=== PATIENT | female | born 1990 | race African-American/Black ===

== ENCOUNTER 2016-10-25 13:22 | Emergency (ER) | payer OTHER ==
[~2016-10-25] VITALS: Ht 160 cm; Wt 53.5 kg
[~2016-10-25 13:22] MED LIST: DOCU-27 PO; ONDA4TAB10 SL; OXYC-323 PO; OXYC1TAB7 PO; PROM25TA10 PO
[2016-10-25] MEDS ORDERED: ONDANSETRON PF 4 MG/2 ML VIAL. ONE (14:27)
[2016-10-25] MEDS: ONDANSETRON ODT 4 MG TAB.RAPDIS PO ONE ×2 (14:30→14:31)
[2016-10-25] MEDS ORDERED: IV NORMAL SALINE 1000ML BAG 1,000 ML IV ONE (15:15)
[2016-10-25 15:22] LABS: BASO # 0.1 x10^3/uL (0.0-0.2); BASO % 1 % (0-3); EOS % 0 % (0-3); HEMATOCRIT 42.5 % (36.0-47.0); HEMOGLOBIN 14.6 g/dL (12.0-15.5); LYMPH # 1.9 x10^3/uL (1.0-4.8); LYMPH % 19 % (24-48); MEAN CORPUSCULAR HEMOGLOBIN 31 pg (25-35); MEAN CORPUSCULAR HGB CONC 34 g/dL (31-37); MEAN CORPUSCULAR VOLUME 89 fL (79-100); MONO % 6 % (0-9); NEUT % 74 % (31-73); PLATELET COUNT 327 x10^3/uL (140-400); RED BLOOD COUNT 4.78 x10^6/uL (3.50-5.40); WHITE BLOOD COUNT 9.7 x10^3/uL (4.0-11.0)
[2016-10-25 15:24] LABS: NEG OBC UR NEG; POS OBC UR POS
[2016-10-25 15:25] LABS: BILIRUBIN,URINE SMALL (NEG); GLUCOSE,URINE NEGATIVE (NEG); NITRITE,URINE NEGATIVE (NEG); PROTEIN,URINE 30 mg/dL (NEG-TRACE)
[2016-10-25 15:36] LABS: BACTERIA,URINE MODERATE /HPF (0-FEW); CALCIUM 9.8 mg/dL (8.5-10.1); GFR 79.9; POTASSIUM 3.4 mmol/L (3.5-5.1); RBC,URINE 0 /HPF (0-2); SQUAMOUS EPITHELIAL CELL,UR MANY /LPF; WBC,URINE OCC /HPF (0-4)
[2016-10-25] MEDS ORDERED: ONDANSETRON PF 4 MG/2 ML VIAL. IV ONE (15:45)
[2016-10-25] MEDS: ONDANSETRON PF 4 MG/2 ML VIAL. IV PRN ×2 (15:50→16:33)
[2016-10-25] MEDS: HYDROMORPHONE 2 MG/ML VIAL. IV PRN ×3 (15:50→17:46)
[2016-10-25] MEDS ORDERED: IOHEXOL 300 MG/ML 75 ML VIAL IV ONE (17:15)
--- NOTE | 2016-10-25 17:51 | RAD ---
PROCEDURE CT abdomen pelvis with intravenous contrast. HISTORY Right-sided abdominal pain. TECHNIQUE After administration of intravenous contrast only, 75 mL Omnipaque 300, CT of the abdomen and pelvis was performed. Exposure: One or more of the following individualized dose reduction techniques were utilized for this examination: 1. Automated exposure control. 2. Adjustment of the mA and/or kV according to patient size. 3. Use of iterative reconstruction technique. COMPARISON CT abdomen pelvis May 21, 2016. FINDINGS Evaluation of enteric structures may be limited by lack of oral contrast. Liver, spleen, pancreas, and bilateral adrenal glands are unremarkable. Gallbladder is absent. Bilateral kidneys enhance symmetrically. No bowel obstruction or inflammation is seen. Appendix is without evidence of inflammation. Urinary bladder is unremarkable. Uterus and adnexa have unremarkable CT appearance. No free air or free fluid is seen in the abdomen or pelvis. IMPRESSION No acute abnormality identified in the abdomen or pelvis. Electronically signed by: Pelon Baugh MD (Oct 25, 2016 17:49:57)
[2016-10-25 17:52] LABS: ALBUMIN 4.3 g/dL (3.4-5.0); DIRECT BILIRUBIN 0.1 mg/dL (0.0-0.2); TOTAL BILIRUBIN 0.9 mg/dL (0.2-1.0); TOTAL PROTEIN 8.7 g/dL (6.4-8.2)
[2016-10-25] MEDS ORDERED: ONDA4TAB10 SL (18:26)
[2016-10-25] MEDS ORDERED: HYDR-2666 PO (18:26)
--- NOTE | 2016-10-25 18:26 | PHYS DOC ---
Past Medical History Past Medical History: No Pertinent History Past Surgical History: Cholecystectomy Alcohol Use: Occasionally Drug Use: Marijuana Adult General Chief Complaint Chief Complaint: NAUSEA/VOMITING/DIARRHA HPI HPI 26-year-old female presenting to the emergency Department today with abdominal pain with nausea and vomiting since proximally 5 o'clock last night. The pain is moderate sharp nonradiating and without alleviating factors. It is associated with nausea and vomiting as above. She denies diarrhea or constipation. She has had this pain intermittently for the past four months. She does endorse cannabis use. She reports a fever however did not take her temperature. Review of Systems Review of Systems review of systems was negative for chest pain or shortness of breath. She denies recorded temperature above 100. She denies any new rashes. All other review of systems is negative. Current Medications Current Medications Current Medications Medications (Trade) Dose Ordered Sig/Parveen Start Time Stop Time Status Last Admin Dose Admin Hydromorphone HCl (Dilaudid) 0.5 mg PRN Q1HR PRN 10/25/16 15:45 10/25/16 17:46 DC 10/25/16 17:46 0.5 MG Iohexol (Omnipaque 300 Mg/ml) 75 ml 1X ONCE 10/25/16 17:15 10/25/16 17:17 DC 10/25/16 17:28 75 ML Ondansetron HCl (Zofran Odt) 4 mg 1X ONCE 10/25/16 14:30 10/25/16 14:33 DC Ondansetron HCl (Zofran) 4 mg PRN Q30MIN PRN 10/25/16 15:45 10/25/16 16:33 DC 10/25/16 16:33 4 MG Ondansetron HCl 4 mg 4 mg STK-MED ONCE 10/25/16 14:27 10/25/16 14:28 DC Sodium Chloride (Iv Sodium Chloride 0.9% 1000ml Bag) 1,000 ml @ 1,000 mls/hr 1X ONCE 10/25/16 15:15 10/25/16 16:14 DC 10/25/16 15:19 1,000 MLS/HR Allergies Allergies Allergies Coded Allergies Type Severity Reaction Last Updated Verified Latex, Natural Rubber Allergy Intermediate 02/08/16 Yes Physical Exam Physical Exam Constitutional: Well developed, well nourished, no acute distress, non-toxic appearance. HENT: Normocephalic, atraumatic, bilateral external ears normal, oropharynx moist, no oral exudates, nose normal. [] Eyes: PERRLA, EOMI, conjunctiva normal, no discharge. Neck: Normal range of motion, no tenderness, supple, no stridor. [] Cardiovascular:Heart rate regular rhythm, no murmur Lungs & Thorax: Bilateral breath sounds clear to auscultation [] Abdomen: mildly tender to palpation generally without a focus. No rebound tenderness present. Pain is not specific to McBurney's point. Skin: Warm, dry, no erythema, no rash. [] Back: No tenderness, no CVA tenderness. Extremities: No tenderness, no cyanosis, no clubbing, ROM intact, no edema. [] Neurologic: Alert and oriented X 3, normal motor function, normal sensory function, no focal deficits noted. Psychologic: Affect normal, judgement normal, mood normal. [] Current Patient Data Vital Signs Vital Signs Date Time Temp Pulse Resp B/P Pulse Ox O2 Delivery O2 Flow Rate FiO2 10/25/16 18:37 70 14 111/75 100 Room Air 10/25/16 14:05 98.3 98.3 Lab Values Laboratory Tests Test 10/25/16 15:00 White Blood Count 9.7x10^3/uL (4.0-11.0) Red Blood Count 4.78x10^6/uL (3.50-5.40) Hemoglobin 14.6g/dL (12.0-15.5) Hematocrit 42.5% (36.0-47.0) Mean Corpuscular Volume 89fL (79-100) Mean Corpuscular Hemoglobin 31pg (25-35) Mean Corpuscular Hemoglobin Concent 34g/dL (31-37) Red Cell Distribution Width 16.0% (11.5-14.5) H Platelet Count 327x10^3/uL (140-400) Neutrophils (%) (Auto) 74% (31-73) H Lymphocytes (%) (Auto) 19% (24-48) L Monocytes (%) (Auto) 6% (0-9) Eosinophils (%) (Auto) 0% (0-3) Basophils (%) (Auto) 1% (0-3) Neutrophils # (Auto) 7.1x10^3uL (1.8-7.7) Lymphocytes # (Auto) 1.9x10^3/uL (1.0-4.8) Monocytes # (Auto) 0.6x10^3/uL (0.0-1.1) Eosinophils # (Auto) 0.0x10^3/uL (0.0-0.7) Basophils # (Auto) 0.1x10^3/uL (0.0-0.2) Urine Collection Type Unknown Urine Color Dk yellow Urine Clarity Clear Urine pH 6.0 Urine Specific [place] >=1.030 Urine Protein 30mg/dL (NEG-TRACE) Urine Glucose (UA) Negativemg/dL (NEG) Urine Ketones (Stick) 15mg/dL (NEG) Urine Blood Negative (NEG) Urine Nitrite Negative (NEG) Urine Bilirubin Small (NEG) Urine Urobilinogen Dipstick 1.0mg/dL (0.2 mg/dL) Urine Leukocyte Esterase Trace (NEG) Urine RBC 0/HPF (0-2) Urine WBC Occ/HPF (0-4) Urine Squamous Epithelial Cells Many/LPF Urine Bacteria Moderate/HPF (0-FEW) Urine Mucus Marked/LPF Urine Test Negative (NEG) Sodium Level 140mmol/L (136-145) Potassium Level 3.4mmol/L (3.5-5.1) L Chloride Level 101mmol/L (98-107) Carbon Dioxide Level 25mmol/L (21-32) Anion Gap 14 (6-14) Blood Urea Nitrogen 16mg/dL (7-20) Creatinine 1.0mg/dL (0.6-1.0) Estimated GFR (Cockcroft-Gault) 79.9 Glucose Level 101mg/dL (70-99) H Calcium Level 9.8mg/dL (8.5-10.1) Total Bilirubin 0.9mg/dL (0.2-1.0) Direct Bilirubin 0.1mg/dL (0.0-0.2) Aspartate Amino Transferase (AST) 45U/L (15-37) H Alanine Aminotransferase (ALT) 63U/L (14-59) H Alkaline Phosphatase 71U/L (46-116) ZX-Kdy-C-Type Natriuretic Peptide 43pg/mL (0-124) Total Protein 8.7g/dL (6.4-8.2) H Albumin 4.3g/dL (3.4-5.0) Lipase 72U/L (73-393) L Laboratory Tests 10/25/16 15:00 Laboratory Tests 10/25/16 15:00 EKG EKG [] Radiology/Procedures Radiology/Procedures CT of the abdomen and pelvis performed[] Course & Med Decision Making Course & Med Decision Making Pertinent Labs and Imaging studies reviewed. (See chart for details) []26-year-old female presenting to the emergency Department with nausea vomiting and abdominal pain. On evaluation the patient was afebrile with a normal heart rate. Otherwise vitals unremarkable. Physical exam showed mild to moderate tenderness generally. Labs were obtained which showed a normal WBC count.urine analysis not suggestive of infection. Many squamous epithelial cells. Culture sent.otherwise chemistry panel showed mild hypokalemia. the patient was treated with IV fluids and pain medication along with nausea medication. CT of the abdomen and pelvis was negative for appendicitis. Her pain improved with the medication provided. I sat down and had a long face-to- face discussion with the patient and her mother and father. We discussed some of the causes of abdominal pain. I re-examine the patient's abdomen which showed no guarding of the appendix. I recommended referral to her primary care physician and three days for continued outpatient evaluation and care. Dragon Disclaimer Dragon Disclaimer This electronic medical record was generated, in whole or in part, using a voice recognition dictation system. Departure Departure Impression: Primary Impression: Abdominal pain Additional Impression: Nausea & vomiting Disposition: 01 HOME, SELF-CARE Condition: STABLE Referrals: KAVITA VÁSQUEZ MD (PCP) Patient Instructions: Abdominal Pain Additional Instructions: Thank you for allowing us to participate in your care today. Followup with your primary care physician in 3 days if your symptoms do not improve. If you do not have a primary care provider you can ask for a list of our primary care providers. Return to the emergency department you have any new or concerning findings. This should be evaluated by the primary care physician and any necessary consulting services for continued management within a few days after discharge. Return to emergency room if you have any new or concerning symptoms including but not limited to fever, chills, nausea, vomiting, intractable pain, any new rashes, chest pain, shortness of air, uncontrolled bleeding, difficulty breathing, and/or vision loss. You may have been prescribed medication that can change in your level of thinking and ability to operate machinery. These medications include hydrocodone and Ativan. Also, Benadryl has been known to do this as well. Be sure to check with your pharmacist and ask if the medications you've prescribed can affect your level of consciousness. I recommend not operating heavy machinery or driving while on medication such as these. Scripts Ondansetron (Zofran Odt)4 Mg Tab.rapdis1 Tab SL PRN Q8HRS PRN NAUSEA #6 TAB Prov:SUSAN SHERMAN MD 10/25/16 Hydrocodone Bit/Acetaminophen (Hydrocodone-Apap 5-325 )1 Each Tablet1 Tab PO PRN Q6HRS PRN PAIN #15 TAB Be careful as this medication may cause you to be drowsy or tired. Do not drive on this medication. Prov:SUSAN SHERMAN MD 10/25/16 Problem Qualifiers SUSAN SHERMAN MD Oct 25, 2016 18:26
[2016-10-25 18:37] VITALS: BP 111/75
== END 2016-10-25 19:02 | disposition home or self-care (01) ==
LOC: ER 13:22
DX: R10.30 Lower abdominal pain, unspecified (principal); R11.2 Nausea with vomiting, unspecified; F12.90 Cannabis use, unspecified, uncomplicated; Z91.040 Latex allergy status; Z90.49 Acquired absence of other specified parts of digestive tract
CPT/HCPCS: 36415; 74177; 80048; 80076; 81001; 81025; 83690; 83880; 85027; 87086; 96361; 96374; 96375; 96376; 99285; J1170; J2405; J7030; Q9967; Q0162

== ENCOUNTER 2016-11-26 10:45 | Emergency (ER) | payer OTHER ==
[~2016-11-26 10:45] MED LIST changes: +HYDR-2666 PO
--- NOTE | 2016-11-26 10:48 | PHYS DOC ---
Past Medical History Past Medical History: No Pertinent History Past Surgical History: Cholecystectomy Alcohol Use: Occasionally Drug Use: Marijuana Adult General Chief Complaint Chief Complaint: NAUSEA/VOMITING/DIARRHA HPI HPI Patient is a 26 year old female who presents with nausea vomiting or abdominal pain. According to her mom this is a cycle that she is in every 2 months when she develops this and has come to the ER. According to her mom she ate a hamburger on downtime stay in the 2 AM this morning she started having nausea vomiting and abdominal pain. Patient denies any fevers chills she denies any blood in her stool or vomit. She states she's vomited 3-4 times since last night. She points to her right lower quadrant where her pain is. She states this is her normal pain that she has when her abdomen accept. Review of Systems Review of Systems Constitutional: Denies fever or chills [] Eyes: Denies change in visual acuity, redness, or eye pain [] HENT: Denies nasal congestion or sore throat [] Respiratory: Denies cough or shortness of breath [] Cardiovascular: No additional information not addressed in HPI [] GI: Positive for abdominal pain, vomiting, denies any bloody stools or diarrhea : Denies dysuria or hematuria [] Musculoskeletal: Denies back pain or joint pain [] Integument: Denies rash or skin lesions [] Neurologic: Denies headache, focal weakness or sensory changes [] Endocrine: Denies polyuria or polydipsia [] Current Medications Current Medications Current Medications Medications (Trade) Dose Ordered Sig/Parveen Start Time Stop Time Status Last Admin Dose Admin Hydromorphone HCl (Dilaudid) 1 mg PRN Q15MIN PRN 11/26/16 11:30 11/27/16 11:29 11/26/16 14:15 1 MG Morphine Sulfate 2 mg PRN Q15MIN PRN 11/26/16 11:00 11/27/16 10:59 11/26/16 11:21 2 MG Ondansetron HCl (Zofran) 4 mg 1X ONCE 11/26/16 11:00 11/26/16 11:01 DC 11/26/16 11:20 4 MG Ondansetron HCl 4 mg 4 mg 1X ONCE 11/26/16 12:15 11/26/16 12:16 DC 2/17/17 12:11 4 MG Promethazine HCl 25 mg/Sodium Chloride 51 ml @ 101 mls/hr 1X ONCE 11/26/16 13:15 11/26/16 13:45 DC 11/26/16 13:35 101 MLS/HR Sodium Chloride (Iv Sodium Chloride 0.9% 1000ml Bag) 1,000 ml @ 1,000 mls/hr 1X ONCE 11/26/16 13:15 11/26/16 14:14 DC 11/26/16 13:25 1,000 MLS/HR Allergies Allergies Allergies Coded Allergies Type Severity Reaction Last Updated Verified Latex, Natural Rubber Allergy Intermediate 02/08/16 Yes Physical Exam Physical Exam Constitutional: Well developed, well nourished, no acute distress, non-toxic appearance. [] HENT: Normocephalic, atraumatic, bilateral external ears normal, oropharynx moist, no oral exudates, nose normal. [] Eyes: PERRLA, EOMI, conjunctiva normal, no discharge. [] Neck: Normal range of motion, no tenderness, supple, no stridor. [] Cardiovascular:Heart rate regular rhythm, no murmur [] Lungs & Thorax: Bilateral breath sounds clear to auscultation [] Abdomen: Bowel sounds normal, soft, tender to palpation diffusely, no masses, no pulsatile masses. [] Skin: Warm, dry, no erythema, no rash. [] Back: No tenderness, no CVA tenderness. [] Extremities: No tenderness, no cyanosis, no clubbing, ROM intact, no edema. [] Neurologic: Alert and oriented X 3, normal motor function, normal sensory function, no focal deficits noted. [] Psychologic: Affect normal, judgement normal, mood normal. [] Current Patient Data Vital Signs Vital Signs Date Time Temp Pulse Resp B/P Pulse Ox O2 Delivery O2 Flow Rate FiO2 11/26/16 14:15 12 11/26/16 11:06 98.3 64 141/79 98 Room Air 98.3 Lab Values Laboratory Tests Test 11/26/16 11:20 11/26/16 13:00 11/26/16 13:08 White Blood Count 8.5x10^3/uL (4.0-11.0) Red Blood Count 4.56x10^6/uL (3.50-5.40) Hemoglobin 14.3g/dL (12.0-15.5) Hematocrit 42.3% (36.0-47.0) Mean Corpuscular Volume 93fL (79-100) Mean Corpuscular Hemoglobin 32pg (25-35) Mean Corpuscular Hemoglobin Concent 34g/dL (31-37) Red Cell Distribution Width 14.3% (11.5-14.5) Platelet Count 296x10^3/uL (140-400) Neutrophils (%) (Auto) 80% (31-73) H Lymphocytes (%) (Auto) 14% (24-48) L Monocytes (%) (Auto) 5% (0-9) Eosinophils (%) (Auto) 0% (0-3) Basophils (%) (Auto) 1% (0-3) Neutrophils # (Auto) 6.8x10^3uL (1.8-7.7) Lymphocytes # (Auto) 1.2x10^3/uL (1.0-4.8) Monocytes # (Auto) 0.4x10^3/uL (0.0-1.1) Eosinophils # (Auto) 0.0x10^3/uL (0.0-0.7) Basophils # (Auto) 0.1x10^3/uL (0.0-0.2) Sodium Level 143mmol/L (136-145) Potassium Level 4.3mmol/L (3.5-5.1) Chloride Level 103mmol/L (98-107) Carbon Dioxide Level 25mmol/L (21-32) Anion Gap 15 (6-14) H Blood Urea Nitrogen 13mg/dL (7-20) Creatinine 0.8mg/dL (0.6-1.0) Estimated GFR (Cockcroft-Gault) 103.3 BUN/Creatinine Ratio 16 (6-20) Glucose Level 107mg/dL (70-99) H Calcium Level 9.9mg/dL (8.5-10.1) Total Bilirubin 0.5mg/dL (0.2-1.0) Aspartate Amino Transferase (AST) 73U/L (15-37) H Alanine Aminotransferase (ALT) 91U/L (14-59) H Alkaline Phosphatase 75U/L (46-116) Creatine Kinase 265U/L (26-192) H Total Protein 8.1g/dL (6.4-8.2) Albumin 4.5g/dL (3.4-5.0) Albumin/Globulin Ratio 1.3 (1.0-1.7) Lipase 66U/L (73-393) L Serum Test, Qualitative Negative (NEG) Urine Collection Type Unknown Urine Color Yellow Urine Clarity Clear Urine pH 6.0 Urine Specific [place] >=1.030 Urine Protein 30mg/dL (NEG-TRACE) Urine Glucose (UA) Negativemg/dL (NEG) Urine Ketones (Stick) 40mg/dL (NEG) Urine Blood Negative (NEG) Urine Nitrite Negative (NEG) Urine Bilirubin Negative (NEG) Urine Urobilinogen Dipstick 0.2mg/dL (0.2 mg/dL) Urine Leukocyte Esterase Negative (NEG) Urine RBC 3-5/HPF (0-2) Urine WBC 1-4/HPF (0-4) Urine Squamous Epithelial Cells Few/LPF Urine Bacteria 0/HPF (0-FEW) Urine Mucus Marked/LPF POC Urine HCG, Qualitative Hcg negative (Negative) Laboratory Tests 11/26/16 11:20 Laboratory Tests 11/26/16 11:20 EKG EKG [] Radiology/Procedures Radiology/Procedures [facility] [address] [place] [address] IMAGING REPORT Signed PATIENT: ROSALINE KIMBLE ACCOUNT: [id number] : 1990 LOCATION: ER AGE: 26 SEX: F EXAM STATUS: REG ER ORD. PHYSICIAN: HARMAN CORCORAN MD REASON: abd pain PROCEDURE: ACUTE ABDOMEN SERIES Abdomen series with chest, 3 views, 11/26/2016: History: Abdominal pain and dizziness There is a paucity of bowel gas in the GI tract. No dilated bowel loops are seen. No free air is evident in the abdomen. Surgical clips are present in the right upper quadrant. No abnormal abdominal calcifications are seen. The heart size is normal. The lungs are clear. There is no evidence of pleural fluid. IMPRESSION: No acute abdominal abnormality is detected. DICTATED and SIGNED BY: TRAM GAFFNEY MD DATE: 11/26/16 1208 CC: HARMAN CORCORAN MD; KAVITA VÁSQUEZ MD ~ Impressions: nause, vomiting Course & Med Decision Making Course & Med Decision Making Pertinent Labs and Imaging studies reviewed. (See chart for details) Abdominal series, labs do not show acute abdomen allergies. After 2-1 mg doses of Dilaudid and 2 doses of 4 mg Zofran and 25 mg. Patient's nausea is controlled her abdominal pain is resolved. She is requesting be discharged home. Return precautions given she is agreeable plan is in stable condition at this time. Dragon Disclaimer Dragon Disclaimer This electronic medical record was generated, in whole or in part, using a voice recognition dictation system. Departure Departure Impression: Primary Impression: Abdominal pain Disposition: HOME, SELF-CARE Condition: STABLE Referrals: KAVITA VÁSQUEZ MD (PCP) Patient Instructions: Nausea and Vomiting, [id number] Additional Instructions: Your blood work and x-ray did not show any acute abdomen allergies. You're feeling better now. You're being discharged home. Please follow-up with her primary care physician return to ER for worsening pain, uncontrolled nausea or other concerns. Scripts Ondansetron (Zofran Odt)4 Mg Tab.rapdis1 Tab SL Q8HRS #10 TAB Prov:HARMAN CORCORAN MD 11/26/16 HARMAN CORCORAN MD Nov 26, 2016 10:48
[2016-11-26] MEDS ORDERED: IV NORMAL SALINE 1000ML BAG 1,000 ML IV SCH (10:50)
[2016-11-26] MEDS ORDERED: MORPHINE SULFATE 2 MG/ML DISP.SYRIN. IV/SQ PRN (11:00)
[2016-11-26] MEDS ORDERED: ONDANSETRON PF 4 MG/2 ML VIAL. IV ONE ×2 (11:00→12:15)
[2016-11-26 11:32] LABS: BASO # 0.1 x10^3/uL (0.0-0.2); BASO % 1 % (0-3); EOS % 0 % (0-3); HEMATOCRIT 42.3 % (36.0-47.0); HEMOGLOBIN 14.3 g/dL (12.0-15.5); LYMPH # 1.2 x10^3/uL (1.0-4.8); LYMPH % 14 % (24-48); MEAN CORPUSCULAR HEMOGLOBIN 32 pg (25-35); MEAN CORPUSCULAR HGB CONC 34 g/dL (31-37); MEAN CORPUSCULAR VOLUME 93 fL (79-100); MONO % 5 % (0-9); NEUT % 80 % (31-73); PLATELET COUNT 296 x10^3/uL (140-400); RED BLOOD COUNT 4.56 x10^6/uL (3.50-5.40); RED CELL DISTRIBUTION WIDTH 14.3 % (11.5-14.5); WHITE BLOOD COUNT 8.5 x10^3/uL (4.0-11.0)
[2016-11-26 11:37] LABS: CALCIUM 9.9 mg/dL (8.5-10.1); CREATININE 0.8 mg/dL (0.6-1.0); GFR 103.3; POTASSIUM 4.3 mmol/L (3.5-5.1)
[2016-11-26 11:39] LABS: NEG OBC SER NEG; POS OBC SER POS
[2016-11-26] MEDS ORDERED: BC IMPLANT (11:39)
[2016-11-26 11:43] LABS: ALBUMIN 4.5 g/dL (3.4-5.0); TOTAL BILIRUBIN 0.5 mg/dL (0.2-1.0)
--- NOTE | 2016-11-26 12:11 | RAD ---
Abdomen series with chest, 3 views, 11/26/2016: History: Abdominal pain and dizziness There is a paucity of bowel gas in the GI tract. No dilated bowel loops are seen. No free air is evident in the abdomen. Surgical clips are present in the right upper quadrant. No abnormal abdominal calcifications are seen. The heart size is normal. The lungs are clear. There is no evidence of pleural fluid. IMPRESSION: No acute abdominal abnormality is detected.
[2016-11-26 12:16] LABS: ALBUMIN/GLOBULIN RATIO 1.3 (1.0-1.7); TOTAL PROTEIN 8.1 g/dL (6.4-8.2)
[2016-11-26 13:13] LABS: BILIRUBIN,URINE NEGATIVE (NEG); GLUCOSE,URINE NEGATIVE (NEG); NITRITE,URINE NEGATIVE (NEG); PROTEIN,URINE 30 mg/dL (NEG-TRACE); UROBILINOGEN,URINE 0.2 mg/dL (0.2 mg/dL)
[2016-11-26] MEDS ORDERED: IV NORMAL SALINE 1000ML BAG 1,000 ML IV ONE (13:15)
[2016-11-26] MEDS ORDERED: PROMETHAZINE 25 MG in IV NORMAL SALINE 50ML 50 ML IV ONE (13:15)
[2016-11-26 13:23] LABS: BACTERIA,URINE 0 /HPF (0-FEW); SQUAMOUS EPITHELIAL CELL,UR FEW /LPF
[2016-11-26] MEDS: HYDROMORPHONE 2 MG/ML VIAL. IV/SQ PRN ×2 (13:25→14:15)
[2016-11-26] MEDS ORDERED: ONDA4TAB10 SL (14:24)
[2016-11-26 14:30] VITALS: BP 109/57
[2016-11-27] MEDS ORDERED: HYDR-971 PO (17:16)
[2016-11-27] MEDS ORDERED: PROM12.56 PO (17:16)
== END 2016-11-26 15:25 | disposition home or self-care (01) ==
LOC: ER 10:45
DX: R10.9 Unspecified abdominal pain (principal); Z91.040 Latex allergy status; F12.10 Cannabis abuse, uncomplicated; Z90.49 Acquired absence of other specified parts of digestive tract
CPT/HCPCS: 36415; 74022; 80053; 81001; 81025; 82550; 83690; 84703; 85027; 96361; 96365; 96375; 96376; 99285; J1170; J2270; J2405; J2550; J7030

== ENCOUNTER 2016-11-27 12:26 | Emergency (ER) | payer OTHER ==
[~2016-11-27] VITALS: Ht 160 cm; Wt 52.2 kg
[~2016-11-27 12:26] MED LIST changes: +BC IMPLANT
--- NOTE | 2016-11-27 13:12 | PHYS DOC ---
Past Medical History Past Medical History: No Pertinent History Past Surgical History: Cholecystectomy Alcohol Use: Occasionally Drug Use: Marijuana Adult General Chief Complaint Chief Complaint: NAUSEA/VOMITING/DIARRHA HPI HPI Patient is a 26 year old female who presents with abdominal pain. Patient reports since yesterday she has been having generalized abdominal pain that is accompanied by nausea and vomiting. No clear inciting or mitigating factors. She has not been able to keep down any oral intake despite taking some zofran at home. Patient was seen yesterday for same and discharged home after evaluation did not reveal any concerning findings. Review of Systems Review of Systems Constitutional: Denies fever or chills Eyes: Denies change in visual acuity or eye pain HENT: Denies nasal congestion or sore throat Respiratory: Denies cough or shortness of breath Cardiovascular: Denies chest pain GI: General abdominal pain, nausea, vomiting. Denies bloody stools or diarrhea : Denies dysuria or hematuria Musculoskeletal: Denies back pain or joint pain Integument: Denies rash or skin lesions Neurologic: Denies headache, focal weakness or sensory changes Current Medications Current Medications Current Medications Medications (Trade) Dose Ordered Sig/Parveen Start Time Stop Time Status Last Admin Dose Admin Famotidine (Pepcid) 20 mg 1X ONCE 11/27/16 13:30 11/27/16 13:31 DC 11/27/16 13:34 20 MG Fentanyl Citrate (Fentanyl 2ml Vial) 25 mcg 1X ONCE 11/27/16 14:15 11/27/16 14:16 DC 11/27/16 14:24 25 MCG Ondansetron HCl (Zofran) 4 mg 1X ONCE 11/27/16 13:30 11/27/16 13:31 DC 11/27/16 13:33 4 MG Prochlorperazine Edisylate (Compazine) 10 mg 1X ONCE 11/27/16 14:15 11/27/16 14:16 DC 11/27/16 14:21 10 MG Sodium Chloride (Iv Sodium Chloride 0.9% 1000ml Bag) 1,000 ml @ 1,000 mls/hr Q1H 11/27/16 13:30 11/27/16 14:29 DC 11/27/16 13:38 1,000 MLS/HR Allergies Allergies Allergies Coded Allergies Type Severity Reaction Last Updated Verified Latex, Natural Rubber Allergy Intermediate 5/1/16 Yes Physical Exam Physical Exam Constitutional: Well developed, well nourished, no acute distress, non-toxic appearance HENT: Normocephalic, atraumatic, bilateral external ears normal Eyes: EOMI, conjunctiva normal, no discharge Neck: Normal range of motion, no stridor Cardiovascular: Heart rate normal, regular rhythm, no murmur Lungs & Thorax: Bilateral breath sounds clear to auscultation Abdomen: Bowel sounds normal, soft, non-distended, generally TTP most prominently in the epigastrium Skin: Warm, dry, no erythema, no rash Extremities: No obvious deformity, no edema Neurologic: Alert and oriented X 3, no gross deficits noted Current Patient Data Vital Signs Vital Signs Date Time Temp Pulse Resp B/P Pulse Ox O2 Delivery O2 Flow Rate FiO2 11/27/16 14:24 19 97 Room Air 11/27/16 13:00 98.6 58 148/86 98.6 Lab Values Laboratory Tests Test 11/27/16 13:02 11/27/16 13:15 11/27/16 13:25 POC Urine HCG, Qualitative Hcg negative (Negative) Urine Collection Type Unknown Urine Color [place] Urine Clarity Clear Urine pH 6.0 Urine Specific [place] >=1.030 Urine Protein 30mg/dL (NEG-TRACE) Urine Glucose (UA) Negativemg/dL (NEG) Urine Ketones (Stick) >=80mg/dL (NEG) Urine Blood Negative (NEG) Urine Nitrite Negative (NEG) Urine Bilirubin Small (NEG) Urine Urobilinogen Dipstick 1.0mg/dL (0.2 mg/dL) Urine Leukocyte Esterase Negative (NEG) Urine RBC 0/HPF (0-2) Urine WBC Occ/HPF (0-4) Urine Squamous Epithelial Cells Mod/LPF Urine Bacteria Few/HPF (0-FEW) Urine Mucus Mod/LPF White Blood Count 9.3x10^3/uL (4.0-11.0) Red Blood Count 4.26x10^6/uL (3.50-5.40) Hemoglobin 13.3g/dL (12.0-15.5) Hematocrit 39.6% (36.0-47.0) Mean Corpuscular Volume 93fL (79-100) Mean Corpuscular Hemoglobin 31pg (25-35) Mean Corpuscular Hemoglobin Concent 34g/dL (31-37) Red Cell Distribution Width 14.1% (11.5-14.5) Platelet Count 262x10^3/uL (140-400) Neutrophils (%) (Auto) 72% (31-73) Lymphocytes (%) (Auto) 23% (24-48) L Monocytes (%) (Auto) 5% (0-9) Eosinophils (%) (Auto) 0% (0-3) Basophils (%) (Auto) 1% (0-3) Neutrophils # (Auto) 6.7x10^3uL (1.8-7.7) Lymphocytes # (Auto) 2.1x10^3/uL (1.0-4.8) Monocytes # (Auto) 0.5x10^3/uL (0.0-1.1) Eosinophils # (Auto) 0.0x10^3/uL (0.0-0.7) Basophils # (Auto) 0.1x10^3/uL (0.0-0.2) Sodium Level 138mmol/L (136-145) Potassium Level 3.3mmol/L (3.5-5.1) L Chloride Level 100mmol/L (98-107) Carbon Dioxide Level 25mmol/L (21-32) Anion Gap 13 (6-14) Blood Urea Nitrogen 8mg/dL (7-20) Creatinine 0.8mg/dL (0.6-1.0) Estimated GFR (Cockcroft-Gault) 103.3 BUN/Creatinine Ratio 10 (6-20) Glucose Level 81mg/dL (70-99) Calcium Level 9.0mg/dL (8.5-10.1) Total Bilirubin 0.8mg/dL (0.2-1.0) Aspartate Amino Transferase (AST) 43U/L (15-37) H Alanine Aminotransferase (ALT) 62U/L (14-59) H Alkaline Phosphatase 64U/L (46-116) Total Protein 7.1g/dL (6.4-8.2) Albumin 3.9g/dL (3.4-5.0) Albumin/Globulin Ratio 1.2 (1.0-1.7) Lipase 77U/L (73-393) Laboratory Tests 11/27/16 13:25 Laboratory Tests 11/27/16 13:25 EKG EKG [] Radiology/Procedures Radiology/Procedures CT A/P: Pending Course & Med Decision Making Course & Med Decision Making Pertinent Labs and Imaging studies reviewed. (See chart for details) Patient is 26-year-old female who presents with abdominal pain and nausea/ vomiting. Symptoms since yesterday, however patient has history of similar symptoms in the past. Viral gastroenteritis is possibility, would also consider other pathology such as gastroparesis. Will check labs, UA, urine preg. IVF bolus, pain meds, pepcid, nausea meds ordered for relief of symptoms. I was initially hoping to avoid imaging as patient had AAS yesterday and had a CT scan just a month ago, however even after meds patient complaining of continued severe symptoms so will obtain scan to rule out more serious pathology. At this time will check patient out to Dr. Mancia with CT scan pending. Dragon Disclaimer Dragon Disclaimer This electronic medical record was generated, in whole or in part, using a voice recognition dictation system. Departure Departure Referrals: KAVITA VÁSQUEZ MD (PCP) SHIRA MILES MD Nov 27, 2016 13:12
[2016-11-27 13:25] LABS: BILIRUBIN,URINE SMALL (NEG); GLUCOSE,URINE NEGATIVE (NEG); NITRITE,URINE NEGATIVE (NEG); PROTEIN,URINE 30 mg/dL (NEG-TRACE)
[2016-11-27] MEDS ORDERED: FAMOTIDINE 20 MG/2 ML VIAL IVP ONE (13:30)
[2016-11-27] MEDS ORDERED: IV NORMAL SALINE 1000ML BAG 1,000 ML IV SCH (13:30)
[2016-11-27] MEDS ORDERED: ONDANSETRON PF 4 MG/2 ML VIAL. IV ONE (13:30)
[2016-11-27] MEDS ORDERED: FENTANYL PF 100 MCG/2 ML VIAL. IV ONE ×2 (13:30→14:15)
[2016-11-27 13:43] LABS: BASO # 0.1 x10^3/uL (0.0-0.2); BASO % 1 % (0-3); EOS % 0 % (0-3); HEMATOCRIT 39.6 % (36.0-47.0); HEMOGLOBIN 13.3 g/dL (12.0-15.5); LYMPH # 2.1 x10^3/uL (1.0-4.8); LYMPH % 23 % (24-48); MEAN CORPUSCULAR HEMOGLOBIN 31 pg (25-35); MEAN CORPUSCULAR HGB CONC 34 g/dL (31-37); MEAN CORPUSCULAR VOLUME 93 fL (79-100); MONO % 5 % (0-9); NEUT % 72 % (31-73); PLATELET COUNT 262 x10^3/uL (140-400); RED BLOOD COUNT 4.26 x10^6/uL (3.50-5.40); RED CELL DISTRIBUTION WIDTH 14.1 % (11.5-14.5); WHITE BLOOD COUNT 9.3 x10^3/uL (4.0-11.0)
[2016-11-27 13:49] LABS: BACTERIA,URINE FEW /HPF (0-FEW); RBC,URINE 0 /HPF (0-2); SQUAMOUS EPITHELIAL CELL,UR MOD /LPF; WBC,URINE OCC /HPF (0-4)
[2016-11-27 13:56] LABS: CREATININE 0.8 mg/dL (0.6-1.0); GFR 103.3; POTASSIUM 3.3 mmol/L (3.5-5.1)
[2016-11-27 14:02] LABS: ALBUMIN 3.9 g/dL (3.4-5.0); ALBUMIN/GLOBULIN RATIO 1.2 (1.0-1.7); TOTAL BILIRUBIN 0.8 mg/dL (0.2-1.0); TOTAL PROTEIN 7.1 g/dL (6.4-8.2)
[2016-11-27] MEDS ORDERED: PROCHLORPERAZINE 10 MG/2 ML VIAL. IV ONE (14:15)
[2016-11-27] MEDS ORDERED: IOHEXOL 300 MG/ML 75 ML VIAL IV ONE (14:30)
[2016-11-27] MEDS ORDERED: CONTRAST GIVEN MC PRN (14:45)
--- NOTE | 2016-11-27 15:26 | RAD ---
PQRS STATEMENT One or more of the following individualized dose reduction techniques were utilized for this study: 1.Automated exposure control. 2.Adjustment of the mA and/orkVaccording to patient size. 3.Use of iterative reconstruction technique. Indication:NAUSEA AND VOMITING FOR 2 DAYS, EPIGASTRIC PAIN, NOT ABLE TO KEEP ANY FOOD OR DRINK DOWN
PT STATES IN LAST MONTH FOR SAME PROBLEM
OMNI 300 75ML
PRIORS SENT Reason: abd pain, N/V, h/o SBO, r/o acute process / Spl. Instructions: / History: Comparison: October 25, 2016 Technique: multiple contiguous axial images were obtained through the abdomen and pelvis after intravenous administration of iodinated contrast. Coronal and sagittal reformations were created. Findings: The lung bases are clear. The heart size is normal. The liver is normal in size with no focal lesions identified. Gallbladder is surgically absent. The pancreas is unremarkable. The spleen and adrenal glands are within normal limits. The kidneys demonstrate no hydronephrosis or mass. The abdominal aorta is normal in caliber. There is no ascites or adenopathy. The appendix is normal. The bowel loops are normal in caliber. The urinary bladder is within normal limits. No destructive osseous lesion is identified. Impression: No ascites or inflammatory mass. Electronically signed by: Manuel Avila (Nov 27, 2016 15:24:39)
[2016-11-27] MEDS ORDERED: DIPHENHYDRAMINE 50 MG/ML VIAL IVP ONE (15:45)
[2016-11-27] MEDS ORDERED: MORPHINE SULFATE 4 MG/ML DISP.SYRIN. IV ONE (15:45)
[2016-11-27] MEDS ORDERED: PROMETHAZINE 12.5 MG in IV NORMAL SALINE 50ML 50 ML IV PRN (15:45)
[2016-11-27] MEDS ORDERED: HYDROMORPHONE 2 MG/ML VIAL. IV ONE (16:45)
--- NOTE | 2016-11-27 16:58 | PHYS DOC ---
Past Medical History Past Medical History: No Pertinent History Past Surgical History: Cholecystectomy Alcohol Use: Occasionally Drug Use: Marijuana Adult General Chief Complaint Chief Complaint: NAUSEA/VOMITING/DIARRHA Current Medications Current Medications Current Medications Medications (Trade) Dose Ordered Sig/Parveen Start Time Stop Time Status Last Admin Dose Admin Diphenhydramine HCl 25 mg 25 mg 1X ONCE 11/27/16 15:45 11/27/16 15:46 DC 11/27/16 16:05 25 MG Famotidine (Pepcid) 20 mg 1X ONCE 11/27/16 13:30 11/27/16 13:31 DC 11/27/16 13:34 20 MG Fentanyl Citrate (Fentanyl 2ml Vial) 25 mcg 1X ONCE 11/27/16 14:15 11/27/16 14:16 DC 11/27/16 14:24 25 MCG Hydromorphone HCl (Dilaudid) 1 mg 1X ONCE 11/27/16 16:45 11/27/16 16:46 DC 11/27/16 16:40 1 MG Info (Do NOT chart on this entry -- for MONITORING) 1 each PRN DAILY PRN 11/27/16 14:45 11/27/16 17:45 DC Iohexol (Omnipaque 300 Mg/ml) 75 ml 1X ONCE 11/27/16 14:30 11/27/16 14:31 DC 11/27/16 15:00 75 ML Morphine Sulfate 4 mg 1X ONCE 11/27/16 15:45 11/27/16 15:46 DC Ondansetron HCl (Zofran) 4 mg 1X ONCE 11/27/16 13:30 11/27/16 13:31 DC 11/27/16 13:33 4 MG Prochlorperazine Edisylate (Compazine) 10 mg 1X ONCE 11/27/16 14:15 11/27/16 14:16 DC 11/27/16 14:21 10 MG Promethazine HCl/ Sodium Chloride (Phenergan/Iv Sodium Chloride 0.9% 50ml) 50.5 ml @ 151.5 mls/ hr PRN Q6HRS PRN 11/27/16 15:45 11/27/16 17:45 DC Sodium Chloride (Iv Sodium Chloride 0.9% 1000ml Bag) 1,000 ml @ 1,000 mls/hr Q1H 11/27/16 13:30 11/27/16 14:29 DC 11/27/16 13:38 1,000 MLS/HR Allergies Allergies Allergies Coded Allergies Type Severity Reaction Last Updated Verified Latex, Natural Rubber Allergy Intermediate 02/08/16 Yes Physical Exam Physical Exam Constitutional: Well developed, well nourished, no acute distress, non-toxic appearance. [] HENT: Normocephalic, atraumatic, bilateral external ears normal, oropharynx moist, no oral exudates, nose normal. [] Eyes: PERRLA, EOMI, conjunctiva normal, no discharge. [] Neck: Normal range of motion, no tenderness, supple, no stridor. [] Cardiovascular:Heart rate regular rhythm, no murmur [] Lungs & Thorax: Bilateral breath sounds clear to auscultation [] Abdomen: Bowel sounds normal, soft, no tenderness, no masses, no pulsatile masses. [] Skin: Warm, dry, no erythema, no rash. [] Back: No tenderness, no CVA tenderness. [] Extremities: No tenderness, no cyanosis, no clubbing, ROM intact, no edema. [] Neurologic: Alert and oriented X 3, normal motor function, normal sensory function, no focal deficits noted. [] Psychologic: Affect normal, judgement normal, mood normal. [] Current Patient Data Vital Signs Vital Signs Date Time Temp Pulse Resp B/P Pulse Ox O2 Delivery O2 Flow Rate FiO2 11/27/16 17:30 62 14 122/70 100 Room Air 11/27/16 13:00 98.6 98.6 Lab Values Laboratory Tests Test 11/27/16 13:02 11/27/16 13:15 11/27/16 13:25 POC Urine HCG, Qualitative Hcg negative (Negative) Urine Collection Type Unknown Urine Color [place] Urine Clarity Clear Urine pH 6.0 Urine Specific [place] >=1.030 Urine Protein 30mg/dL (NEG-TRACE) Urine Glucose (UA) Negativemg/dL (NEG) Urine Ketones (Stick) >=80mg/dL (NEG) Urine Blood Negative (NEG) Urine Nitrite Negative (NEG) Urine Bilirubin Small (NEG) Urine Urobilinogen Dipstick 1.0mg/dL (0.2 mg/dL) Urine Leukocyte Esterase Negative (NEG) Urine RBC 0/HPF (0-2) Urine WBC Occ/HPF (0-4) Urine Squamous Epithelial Cells Mod/LPF Urine Bacteria Few/HPF (0-FEW) Urine Mucus Mod/LPF White Blood Count 9.3x10^3/uL (4.0-11.0) Red Blood Count 4.26x10^6/uL (3.50-5.40) Hemoglobin 13.3g/dL (12.0-15.5) Hematocrit 39.6% (36.0-47.0) Mean Corpuscular Volume 93fL (79-100) Mean Corpuscular Hemoglobin 31pg (25-35) Mean Corpuscular Hemoglobin Concent 34g/dL (31-37) Red Cell Distribution Width 14.1% (11.5-14.5) Platelet Count 262x10^3/uL (140-400) Neutrophils (%) (Auto) 72% (31-73) Lymphocytes (%) (Auto) 23% (24-48) L Monocytes (%) (Auto) 5% (0-9) Eosinophils (%) (Auto) 0% (0-3) Basophils (%) (Auto) 1% (0-3) Neutrophils # (Auto) 6.7x10^3uL (1.8-7.7) Lymphocytes # (Auto) 2.1x10^3/uL (1.0-4.8) Monocytes # (Auto) 0.5x10^3/uL (0.0-1.1) Eosinophils # (Auto) 0.0x10^3/uL (0.0-0.7) Basophils # (Auto) 0.1x10^3/uL (0.0-0.2) Sodium Level 138mmol/L (136-145) Potassium Level 3.3mmol/L (3.5-5.1) L Chloride Level 100mmol/L (98-107) Carbon Dioxide Level 25mmol/L (21-32) Anion Gap 13 (6-14) Blood Urea Nitrogen 8mg/dL (7-20) Creatinine 0.8mg/dL (0.6-1.0) Estimated GFR (Cockcroft-Gault) 103.3 BUN/Creatinine Ratio 10 (6-20) Glucose Level 81mg/dL (70-99) Calcium Level 9.0mg/dL (8.5-10.1) Total Bilirubin 0.8mg/dL (0.2-1.0) Aspartate Amino Transferase (AST) 43U/L (15-37) H Alanine Aminotransferase (ALT) 62U/L (14-59) H Alkaline Phosphatase 64U/L (46-116) Total Protein 7.1g/dL (6.4-8.2) Albumin 3.9g/dL (3.4-5.0) Albumin/Globulin Ratio 1.2 (1.0-1.7) Lipase 77U/L (73-393) Laboratory Tests 11/27/16 13:25 Laboratory Tests 11/27/16 13:25 EKG EKG [] Radiology/Procedures Radiology/Procedures CT of the abdomen/pelvis with IV contrast demonstrated the following: The lung bases are clear. The heart size is normal. The liver is normal in size with no focal lesions identified. Gallbladder is surgically absent. The pancreas is unremarkable. The spleen and adrenal glands are within normal limits. The kidneys demonstrate no hydronephrosis or mass. The abdominal aorta is normal in caliber. There is no ascites or adenopathy. The appendix is normal. The bowel loops are normal in caliber. The urinary bladder is within normal limits. No destructive osseous lesion is identified. Course & Med Decision Making Course & Med Decision Making Pertinent Labs and Imaging studies reviewed. (See chart for details) I assumed care of this patient from Dr. White. CT of her abdomen and pelvis is negative. Upon my reassessment, the patient continues to be nauseated and is retching in the room. I ordered additional doses of Phenergan and Dilaudid for her pain. Patient will be fluid challenged. She will be discharged with Phenergan and Hunt for pain and will obtain close follow up in the next [address] Sellers for dietary recommendations and was given strict instruction to remain well hydrated with phenergan suppositories as needed for any nausea. Her laboratory workup and CT imaging were reviewed and patient left the department feeling much improved. Pt successfully tolerated oral fluids upon discharge. Dragon Disclaimer Dragon Disclaimer This electronic medical record was generated, in whole or in part, using a voice recognition dictation system. Departure Departure Impression: Primary Impression: Abdominal pain Additional Impression: Intractable vomiting with nausea Disposition: HOME, SELF-CARE Admitting Physician: Other Condition: STABLE Referrals: KAVITA VÁSQUEZ MD (PCP) Patient Instructions: Nausea and Vomiting, [id number] Additional Instructions: Please take your nausea medications as prescribed. Continue to drink plenty of fluids. Return to the ER if you develop any worsening of your symptoms. Scripts Hydrocodone/Apap 5-325 (Hunt 5-325 Tablet)1 Each Tablet1 Tab PO PRN Q6HRS PRN PAIN #8 TAB Ref 0 Prov:REJI KHAN DO 11/27/16 Promethazine Hcl 12.5 Mg Tablet1 Tab PO Q6-8HRS #10 TAB Ref 1 Prov:REJI KHAN DO 11/27/16 Problem Qualifiers REJI KHAN DO Nov 27, 2016 16:58
[2016-11-27] MEDS ORDERED: PROM12.56 PO (17:16)
[2016-11-27] MEDS ORDERED: HYDR-971 PO (17:16)
[2016-11-27 17:30] VITALS: BP 122/70
== END 2016-11-27 17:40 | disposition home or self-care (01) ==
LOC: ER 12:26
DX: R11.2 Nausea with vomiting, unspecified (principal); R10.84 Generalized abdominal pain; F12.10 Cannabis abuse, uncomplicated; Z90.49 Acquired absence of other specified parts of digestive tract; Z91.040 Latex allergy status; Z91.048 Other nonmedicinal substance allergy status
CPT/HCPCS: 36415; 74177; 80053; 81001; 81025; 83690; 85027; 96361; 96374; 96375; 96376; 99285; J0780; J1170; J1200; J2405; J3010; J7030; Q9967; S0028

== ENCOUNTER 2017-05-12 23:48 | Emergency (ER) | payer OTHER ==
[~2017-05-12] VITALS: Ht 160 cm; Wt 52.2 kg
[~2017-05-12 23:48] MED LIST changes: +DOCU-109 PO; -DOCU-27 PO; -HYDR-2666 PO; +HYDR-2758 PO; +HYDR-971 PO; +PROM12.56 PO
--- NOTE | 2017-05-13 00:33 | PHYS DOC ---
Past Medical History Past Medical History: No Pertinent History Past Surgical History: Cholecystectomy Alcohol Use: Occasionally Drug Use: Marijuana Adult General Chief Complaint Chief Complaint: ABDOMINAL PAIN HPI HPI Patient is a 27 year old F who presents with abdominal pain nausea and vomiting. Patient states that around 4:00 PM she developed generalized abdominal tenderness with nausea and vomiting. Patient unable to keep any of her medications down. Patient denies any fevers. Patient is a previous cholestatic to tx. Patient denies possibility of . Patient declines any chest pain or shortness of breath. Patient no other complaints. Review of Systems Review of Systems GEN: Denies fevers, chills, sweats HEENT: Denies blurred vision, sore throat CV: Denies chest pain RESP: Denies shortness of air, cough GI: abd pain with n/v/ NEURO: Denies confusion, dizziness MSK: Denies weakness, joint pain/swelling Current Medications Current Medications Current Medications Medications (Trade) Dose Ordered Sig/Parveen Start Time Stop Time Status Last Admin Dose Admin Diphenhydramine HCl (Benadryl) 50 mg 1X ONCE 05/13/17 02:00 05/13/17 02:01 DC 05/13/17 01:53 50 MG Fentanyl Citrate (Fentanyl 2ml Vial) 50 mcg 1X ONCE 05/13/17 01:15 05/13/17 01:16 DC 05/13/17 01:09 50 MCG Info (Do NOT chart on this entry -- for MONITORING) 1 each PRN DAILY PRN 05/13/17 01:15 05/15/17 01:14 Iohexol (Omnipaque 300 Mg/ml) 75 ml 1X ONCE 05/13/17 01:30 05/13/17 01:31 DC 05/13/17 01:26 75 ML Ketorolac Tromethamine (Toradol) 30 mg 1X ONCE 05/13/17 02:00 05/13/17 02:01 DC 05/13/17 01:53 30 MG Metoclopramide HCl (Reglan) 10 mg 1X ONCE 05/13/17 02:00 05/13/17 02:01 DC 05/13/17 01:53 10 MG Ondansetron HCl (Zofran) 4 mg 1X ONCE 05/13/17 01:00 05/13/17 01:01 DC 05/13/17 00:48 4 MG Sodium Chloride 1,000 ml @ 1,000 mls/hr 1X ONCE 05/13/17 01:00 05/13/17 01:59 DC 05/13/17 00:48 1,000 MLS/HR Allergies Allergies Allergies Coded Allergies Type Severity Reaction Last Updated Verified Latex, Natural Rubber Allergy Intermediate 05/13/17 Yes morphine Allergy Intermediate 05/13/17 Yes Physical Exam Physical Exam GEN.: No apparent distress. Alert and oriented. HEENT: Head is normocephalic, atraumatic NECK: Supple. LUNGS: CTAB. HEART: RRR, S1, S2 present. Peripheral pulses intact ABDOMEN: Soft, mild gen TPP. Positive bowel sounds. EXTREMITIES: Without any cyanosis. NEUROLOGIC: Normal speech, normal tone PSYCHIATRIC: Normal affect, normal mood. SKIN: No ulcerations Current Patient Data Vital Signs Vital Signs Date Time Temp Pulse Resp B/P (MAP) Pulse Ox O2 Delivery O2 Flow Rate FiO2 05/13/17 00:05 98.6 97 18 121/62 (81) 98 Room Air 98.6 Lab Values Laboratory Tests Test 05/13/17 00:07 05/13/17 00:10 05/13/17 00:45 POC Urine HCG, Qualitative Hcg negative (Negative) White Blood Count 9.7 x10^3/uL (4.0-11.0) Red Blood Count 4.26 x10^6/uL (3.50-5.40) Hemoglobin 13.4 g/dL (12.0-15.5) Hematocrit 39.2 % (36.0-47.0) Mean Corpuscular Volume 92 fL (79-100) Mean Corpuscular Hemoglobin 31 pg (25-35) Mean Corpuscular Hemoglobin Concent 34 g/dL (31-37) Red Cell Distribution Width 14.9 % (11.5-14.5) H Platelet Count 277 x10^3/uL (140-400) Neutrophils (%) (Auto) 65 % (31-73) Lymphocytes (%) (Auto) 27 % (24-48) Monocytes (%) (Auto) 7 % (0-9) Eosinophils (%) (Auto) 0 % (0-3) Basophils (%) (Auto) 1 % (0-3) Neutrophils # (Auto) 6.3 x10^3uL (1.8-7.7) Lymphocytes # (Auto) 2.6 x10^3/uL (1.0-4.8) Monocytes # (Auto) 0.7 x10^3/uL (0.0-1.1) Eosinophils # (Auto) 0.0 x10^3/uL (0.0-0.7) Basophils # (Auto) 0.1 x10^3/uL (0.0-0.2) Sodium Level 139 mmol/L (136-145) Potassium Level 3.8 mmol/L (3.5-5.1) Chloride Level 102 mmol/L (98-107) Carbon Dioxide Level 25 mmol/L (21-32) Anion Gap 12 (6-14) Blood Urea Nitrogen 10 mg/dL (7-20) Creatinine 0.7 mg/dL (0.6-1.0) Estimated GFR (Cockcroft-Gault) 119.7 BUN/Creatinine Ratio 14 (6-20) Glucose Level 97 mg/dL (70-99) Calcium Level 9.1 mg/dL (8.5-10.1) Total Bilirubin 0.4 mg/dL (0.2-1.0) Aspartate Amino Transferase (AST) 27 U/L (15-37) Alanine Aminotransferase (ALT) 36 U/L (14-59) Alkaline Phosphatase 66 U/L (46-116) Total Protein 7.5 g/dL (6.4-8.2) Albumin 3.8 g/dL (3.4-5.0) Albumin/Globulin Ratio 1.0 (1.0-1.7) Lipase 75 U/L (73-393) Urine Collection Type Unknown Urine Color Yellow Urine Clarity Cloudy Urine pH 6.0 Urine Specific [place] >=1.030 Urine Protein 30 mg/dL (NEG-TRACE) Urine Glucose (UA) Negative mg/dL (NEG) Urine Ketones (Stick) 40 mg/dL (NEG) Urine Blood Negative (NEG) Urine Nitrite Positive (NEG) Urine Bilirubin Negative (NEG) Urine Urobilinogen Dipstick 0.2 mg/dL (0.2 mg/dL) Urine Leukocyte Esterase Trace (NEG) Urine RBC Occ /HPF (0-2) Urine WBC 5-10 /HPF (0-4) Urine Squamous Epithelial Cells Mod /LPF Urine Bacteria Many /HPF (0-FEW) Urine Mucus Mod /LPF Laboratory Tests 05/13/17 00:10 Laboratory Tests 05/13/17 00:10 EKG EKG [] Radiology/Procedures Radiology/Procedures CT abd and pelvis: IMPRESSION: Proximal enteritis of the jejunum at the left upper quadrant with wall thickening.[] Course & Med Decision Making Course & Med Decision Making Pertinent Labs and Imaging studies reviewed. (See chart for details) ED course: Patient was seen and examined emergency room CBC, CMP, UA, urine , CT scan abdomen and pelvis were ordered, fentanyl and Zofran were ordered along with a 1 L normal saline bolus 0145: Patient still having nausea and slight abdominal pain ordered Benadryl, Toradol, Reglan 0155: Updated patient on lab results and CT results. Recommended patient follow- up with PCP for an upper GI scope as an outpatient study to further evaluate her abdominal pain. Question the patient about signs and symptoms of UTI she states she has no dysuria and no burning with urination and no increased frequency. I believe the urine is most likely contaminant and will not prescribe antibiotics for the patient at this time. MDM: After reviewing the chart, CC/HPI/PMH, physical exam, [lab results], [ radiological results], I do not believe the patient has a intra-abdominal emergency warranting further workup and/or admission at this time. I believe the patient's UA is contaminated and she has no signs or symptoms of a UTI therefore will hold antibiotics at this time and sent for cultures. Explained to the patient she is to follow-up with her PCP to have an upper GI scope done to further evaluate the inflammation of the jejunum. Patient is stable for discharge. Additional verbal discharge instructions were provided to the patient and that if symptoms get worse or any new symptoms arise that are worrisome to the patient she is to return to the emergency room immediately [] Dragon Disclaimer Dragon Disclaimer This electronic medical record was generated, in whole or in part, using a voice recognition dictation system. Departure Departure Impression: Primary Impression: Nausea and vomiting Additional Impression: Abdominal pain Disposition: 01 HOME, SELF-CARE Condition: IMPROVED Referrals: KAVITA VÁSQUEZ MD (PCP) Patient Instructions: Abdominal Pain (Nonspecific), Nausea and Vomiting Additional Instructions: Please follow up with her family doctor next one to 2 days for further evaluation and management of your abdominal pain and the need for possibly an upper GI scope Scripts Ondansetron (ZOFRAN ODT) 4 Mg Tab.rapdis 1 TAB SL Q8HRS, #15 TAB Prov: PAUL NELSON DO 05/13/17 Problem Qualifiers Primary Impression: Nausea and vomiting Vomiting type: unspecified Vomiting Intractability: intractable Qualified Codes: R11.2 - Nausea with vomiting, unspecified Additional Impression: Abdominal pain Abdominal location: generalized Qualified Codes: R10.84 - Generalized abdominal pain PAUL NELSON DO May 13, 2017 00:33
[2017-05-13 00:38] LABS: BASO # 0.1 x10^3/uL (0.0-0.2); BASO % 1 % (0-3); EOS % 0 % (0-3); HEMATOCRIT 39.2 % (36.0-47.0); HEMOGLOBIN 13.4 g/dL (12.0-15.5); LYMPH # 2.6 x10^3/uL (1.0-4.8); LYMPH % 27 % (24-48); MEAN CORPUSCULAR HEMOGLOBIN 31 pg (25-35); MEAN CORPUSCULAR HGB CONC 34 g/dL (31-37); MEAN CORPUSCULAR VOLUME 92 fL (79-100); MONO % 7 % (0-9); NEUT % 65 % (31-73); PLATELET COUNT 277 x10^3/uL (140-400); RED BLOOD COUNT 4.26 x10^6/uL (3.50-5.40); RED CELL DISTRIBUTION WIDTH 14.9 % (11.5-14.5); WHITE BLOOD COUNT 9.7 x10^3/uL (4.0-11.0)
[2017-05-13 00:54] LABS: CALCIUM 9.1 mg/dL (8.5-10.1); CREATININE 0.7 mg/dL (0.6-1.0); GFR 119.7; POTASSIUM 3.8 mmol/L (3.5-5.1)
[2017-05-13 00:59] LABS: BILIRUBIN,URINE NEGATIVE (NEG); GLUCOSE,URINE NEGATIVE (NEG); NITRITE,URINE POSITIVE (NEG); PROTEIN,URINE 30 mg/dL (NEG-TRACE); UROBILINOGEN,URINE 0.2 mg/dL (0.2 mg/dL)
[2017-05-13] MEDS ORDERED: IV NORMAL SALINE 1000ML BAG 1,000 ML IV ONE (01:00)
[2017-05-13] MEDS ORDERED: ONDANSETRON PF 4 MG/2 ML VIAL. IV ONE (01:00)
[2017-05-13 01:02] LABS: ALBUMIN 3.8 g/dL (3.4-5.0); TOTAL BILIRUBIN 0.4 mg/dL (0.2-1.0); TOTAL PROTEIN 7.5 g/dL (6.4-8.2)
[2017-05-13 01:08] LABS: BACTERIA,URINE MANY /HPF (0-FEW); RBC,URINE OCC /HPF (0-2); SQUAMOUS EPITHELIAL CELL,UR MOD /LPF
[2017-05-13] MEDS ORDERED: fentaNYL PF VIAL 100 MCG/2 ML VIAL IV ONE (01:15)
[2017-05-13] MEDS ORDERED: CONTRAST GIVEN MC PRN (01:15)
[2017-05-13] MEDS ORDERED: IOHEXOL 300 MG/ML 75 ML VIAL IV ONE (01:30)
[2017-05-13 01:32] VITALS: BP 136/70
--- NOTE | 2017-05-13 01:45 | RAD ---
CT abdomen and pelvis with contrast COMPARISON: CT abdomen and pelvis liver 2016. TECHNIQUE: Helical CT imaging of the abdomen and pelvis was acquired with 75 mL Omnipaque 300 intravenous contrast. HISTORY: Abdominal pain and vomiting. Abdomen findings: Cholecystectomy. Kidneys, adrenals, spleen, pancreas and liver are unremarkable. There is abnormal wall thickening of the proximal jejunum at the left upper quadrant abdomen consistent with enteritis. No bowel obstruction. The appendix cannot be identified may be obscured by surrounding bowel loops. No abdominal fluid or adenopathy. Lung bases and bones are unremarkable. Pelvis findings: Ovaries poorly visualized due to surrounding fluid-filled small bowel loops. Uterus, bladder, rectum and bones are unremarkable. No significant volume of pelvic fluid evident. No adenopathy. IMPRESSION: Proximal enteritis of the jejunum at the left upper quadrant with wall thickening. Exposure: One or more of the following individualized dose reduction techniques were utilized for this examination: 1. Automated exposure control 2. Adjustment of the mA and/or kV according to patient size 3. Use of iterative reconstruction technique Electronically signed by: Clifford Alvarez MD (05/13/2017 1:42 AM) [id number]
[2017-05-13] MEDS ORDERED: diphenhydrAMINE 50 MG/ML VIAL IVP ONE (02:00)
[2017-05-13] MEDS ORDERED: KETOROLAC TROMETHAMINE 30 MG/ML INJ. IV ONE (02:00)
[2017-05-13] MEDS ORDERED: METOCLOPRAMIDE HCL 10 MG/2 ML VIAL. IV ONE (02:00)
[2017-05-13] MEDS ORDERED: ONDA4TAB10 SL (02:00)
== END 2017-05-13 02:28 | disposition home or self-care (01) ==
LOC: ER 23:48
DX: R11.2 Nausea with vomiting, unspecified (principal); R10.84 Generalized abdominal pain; F12.10 Cannabis abuse, uncomplicated; Z90.49 Acquired absence of other specified parts of digestive tract; Z91.040 Latex allergy status; Z88.5 Allergy status to narcotic agent
CPT/HCPCS: 36415; 74177; 80053; 81001; 81025; 83690; 85027; 87086; 96361; 96374; 96375; 99285; J1200; J1885; J2405; J2765; J3010; J7030; Q9967

== ENCOUNTER 2017-12-01 14:11 | Emergency (ER) | payer BC, OTHER ==
[2017-12-01 14:28] LABS: URINE HCG POC HCG NEGATIVE (Negative)
[2017-12-01 14:53] LABS: BILIRUBIN,URINE NEGATIVE (NEG); CLARITY,URINE CLEAR; COLOR,URINE YELLOW; GLUCOSE,URINE NEGATIVE (NEG); NITRITE,URINE NEGATIVE (NEG); PROTEIN,URINE NEGATIVE (NEG-TRACE); UROBILINOGEN,URINE 0.2 mg/dL (0.2 mg/dL)
[2017-12-01 14:57] LABS: BACTERIA,URINE FEW /HPF (0-FEW); RBC,URINE 0 /HPF (0-2); WBC,URINE OCC /HPF (0-4)
[2017-12-01 14:58] LABS: SQUAMOUS EPITHELIAL CELL,UR FEW /LPF
[2017-12-01] MEDS: ONDANSETRON PF 4 MG/2 ML VIAL. IV ×2 (15:00)
[2017-12-01] MEDS: fentaNYL PF VIAL 100 MCG/2 ML VIAL IV ×4 (15:00→16:27)
[2017-12-01] MEDS: IV NORMAL SALINE 1000ML BAG 1,000 ML IV ×2 (15:00)
[2017-12-01 15:06] LABS: ADD MAN DIFF? NO
[2017-12-01 15:15] LABS: BASO % 1 % (0-3); EOS % 1 % (0-3); HEMATOCRIT 40.7 % (36.0-47.0); LYMPH # 2.2 x10^3/uL (1.0-4.8); LYMPH % 37 % (24-48); MEAN CORPUSCULAR HEMOGLOBIN 31 pg (25-35); MEAN CORPUSCULAR HGB CONC 34 g/dL (31-37); MEAN CORPUSCULAR VOLUME 92 fL (79-100); MONO # 0.5 x10^3/uL (0.0-1.1); MONO % 9 % (0-9); NEUT % 53 % (31-73); PLATELET COUNT 288 x10^3/uL (140-400); RED BLOOD COUNT 4.45 x10^6/uL (3.50-5.40); RED CELL DISTRIBUTION WIDTH 15.8 % (11.5-14.5); WHITE BLOOD COUNT 5.8 x10^3/uL (4.0-11.0)
[2017-12-01 15:22] LABS: ANION GAP 12 (6-14); BLOOD UREA NITROGEN 10 mg/dL (7-20); BUN/CREATININE RATIO 13 (6-20); CALCIUM 9.3 mg/dL (8.5-10.1); CARBON DIOXIDE 24 mmol/L (21-32); CHLORIDE 102 mmol/L (98-107); CREATININE 0.8 mg/dL (0.6-1.0); GFR 102.6; GLUCOSE 87 mg/dL (70-99); POTASSIUM 3.4 mmol/L (3.5-5.1); SODIUM 138 mmol/L (136-145)
[2017-12-01 15:28] LABS: ALK PHOS 70 U/L (46-116); ALT (SGPT) 20 U/L (14-59); AST (SGOT) 24 U/L (15-37); LIPASE 69 U/L (73-393); TOTAL BILIRUBIN 0.5 mg/dL (0.2-1.0); TOTAL PROTEIN 7.9 g/dL (6.4-8.2)
[2017-12-01] MEDS ORDERED: CONTRAST GIVEN MC ×2 (15:45)
[2017-12-01] MEDS: IOHEXOL 300 MG/ML 100ML VIAL. IV ×2 (15:57)
[2017-12-01] MEDS: KETOROLAC 30 MG/ML INJ. IV ×2 (16:23)
== END 2017-12-01 16:49 | disposition home or self-care (01) ==
LOC: ER 14:11
DX: R10.31 Right lower quadrant pain (principal); F12.10 Cannabis abuse, uncomplicated; F31.9 Bipolar disorder, unspecified; F41.9 Anxiety disorder, unspecified; F17.210 Nicotine dependence, cigarettes, uncomplicated; Z90.49 Acquired absence of other specified parts of digestive tract; Z88.5 Allergy status to narcotic agent; Z91.040 Latex allergy status
CPT/HCPCS: 36415; 74177; 80053; 81001; 81025; 83690; 85025; 96361; 96374; 96375; 96376; 99285-25; J1885; J2405; J3010; J7030; Q9967

== ENCOUNTER 2018-07-07 10:51 | Emergency (ER) | payer SELFPAY ==
[~2018-07-07] VITALS: Ht 170.2 cm; Wt 49.9 kg
[~2018-07-07 10:51] MED LIST changes: +TRAM50TA PO
[2018-07-07] MEDS ORDERED: fentaNYL PF VIAL 100 MCG/2 ML VIAL IV ONE ×2 (11:15→12:45)
[2018-07-07] MEDS ORDERED: IV NORMAL SALINE 1000ML BAG 1,000 ML IV ONE (11:15)
[2018-07-07] MEDS ORDERED: PANTOPRAZOLE IV PUSH 40 MG VIAL. IVP ONE (11:15)
[2018-07-07] MEDS ORDERED: ONDANSETRON PF 4 MG/2 ML VIAL. IV ONE ×2 (11:15→12:45)
[2018-07-07] MEDS ORDERED: IOHEXOL 300 MG/ML 100ML VIAL. IV ONE (11:15)
[2018-07-07 11:26] LABS: BASO % 1 % (0-3); EOS % 0 % (0-3); HEMATOCRIT 41.4 % (36.0-47.0); HEMOGLOBIN 14.4 g/dL (12.0-15.5); LYMPH % 16 % (24-48); MEAN CORPUSCULAR HEMOGLOBIN 32 pg (25-35); MEAN CORPUSCULAR HGB CONC 35 g/dL (31-37); MEAN CORPUSCULAR VOLUME 93 fL (79-100); MONO # 0.3 x10^3/uL (0.0-1.1); MONO % 5 % (0-9); NEUT % 79 % (31-73); PLATELET COUNT 254 x10^3/uL (140-400); RED BLOOD COUNT 4.46 x10^6/uL (3.50-5.40); RED CELL DISTRIBUTION WIDTH 14.1 % (11.5-14.5); WHITE BLOOD COUNT 6.3 x10^3/uL (4.0-11.0)
[2018-07-07] MEDS ORDERED: CONTRAST GIVEN. MC PRN (11:30)
[2018-07-07 11:37] LABS: CALCIUM 9.5 mg/dL (8.5-10.1); CREATININE 0.8 mg/dL (0.6-1.0); GFR 101.9; POTASSIUM 3.8 mmol/L (3.5-5.1)
[2018-07-07 11:42] LABS: ALBUMIN/GLOBULIN RATIO 1.1 (1.0-1.7); TOTAL BILIRUBIN 0.6 mg/dL (0.2-1.0); TOTAL PROTEIN 7.6 g/dL (6.4-8.2)
[2018-07-07 12:32] VITALS: BP 108/58
--- NOTE | 2018-07-07 13:46 | PHYS DOC ---
Past Medical History Past Medical History: Anxiety, Bipolar, Depression Past Surgical History: Cholecystectomy Alcohol Use: Occasionally Drug Use: Marijuana Adult General Chief Complaint Chief Complaint: FLANK PAIN HPI HPI Patient is a 28 year old female with history of anxiety, bipolar, depression, who presents today complaining of moderate right lower quadrant abdominal pain radiating to the right flank that has been going on for 1 day. Patient is also complaining of nausea with vomiting. She states she has chills. She states her pain is worse on certain movements. Denies any diarrhea. Denies any chance she is . Review of Systems Review of Systems Constitutional: Denies fever or chills [] Eyes: Denies change in visual acuity, redness, or eye pain [] HENT: Denies nasal congestion or sore throat [] Respiratory: Denies cough or shortness of breath [] Cardiovascular: No additional information not addressed in HPI [] GI: Reports right lower quadrant abdominal pain with nausea and vomiting, denies ,bloody stools or diarrhea [] : Reports right flank pain. Denies dysuria or hematuria [] Musculoskeletal: Denies back pain or joint pain [] Integument: Denies rash or skin lesions [] Neurologic: Denies headache, focal weakness or sensory changes [] Endocrine: Denies polyuria or polydipsia [] All other systems were reviewed and found to be within normal limits, except as documented in this note. Current Medications Current Medications Current Medications Medications (Trade) Dose Ordered Sig/Parveen Start Time Stop Time Status Last Admin Dose Admin Acetaminophen/ Hydrocodone Bitart (Lortab 5/325) 1 tab 1X ONCE 07/07/18 15:00 07/07/18 15:01 DC Dicyclomine HCl (Bentyl) 20 mg 1X ONCE 07/07/18 15:00 07/07/18 15:01 DC Fentanyl Citrate (Fentanyl 2ml Vial) 50 mcg 1X ONCE 07/07/18 12:45 07/07/18 12:46 DC 07/07/18 13:10 50 MCG Info (CONTRAST GIVEN -- Rx MONITORING) 1 each PRN DAILY PRN 07/07/18 11:30 07/09/18 11:29 Iohexol (Omnipaque 300 Mg/ml) 75 ml 1X ONCE 07/07/18 11:15 07/07/18 11:20 DC 07/07/18 11:15 75 ML Ondansetron HCl (Zofran Odt) 4 mg 1X ONCE 07/07/18 15:00 07/07/18 15:01 DC Ondansetron HCl (Zofran) 4 mg 1X ONCE 07/07/18 12:45 07/07/18 12:46 DC 07/07/18 13:09 4 MG Pantoprazole Sodium (PROTONIX VIAL for IV PUSH) 40 mg 1X ONCE 07/07/18 11:15 07/07/18 11:17 DC 07/07/18 11:29 40 MG Sodium Chloride 1,000 ml @ 1,000 mls/hr 1X ONCE 07/07/18 11:15 07/07/18 12:14 DC 07/07/18 11:27 1,000 MLS/HR Allergies Allergies Allergies Coded Allergies Type Severity Reaction Last Updated Verified Latex, Natural Rubber Allergy Intermediate 05/13/17 Yes morphine Allergy Intermediate 05/13/17 Yes Physical Exam Physical Exam Constitutional: Well developed, well nourished, no acute distress, non-toxic appearance. [] HENT: Normocephalic, atraumatic, bilateral external ears normal, oropharynx moist, no oral exudates, nose normal. [] Eyes: PERRLA, EOMI, conjunctiva normal, no discharge. [] Neck: Normal range of motion, no tenderness, supple, no stridor. [] Cardiovascular:Heart rate regular rhythm, no murmur [] Lungs & Thorax: Bilateral breath sounds clear to auscultation [] Abdomen: Bowel sounds normal, soft, no tenderness, no masses, no pulsatile masses. Patient is actively vomiting. Skin: Warm, dry, no erythema, no rash. [] Back: No tenderness, no CVA tenderness. [] Extremities: No tenderness, no cyanosis, no clubbing, ROM intact, no edema. [] Neurologic: Alert and oriented X 3, normal motor function, normal sensory function, no focal deficits noted. [] Psychologic: Affect normal, judgement normal, mood normal. [] Current Patient Data Vital Signs Vital Signs Date Time Temp Pulse Resp B/P (MAP) Pulse Ox O2 Delivery O2 Flow Rate FiO2 07/07/18 13:10 16 Room Air 07/07/18 12:32 56 108/58 (75) 100 07/07/18 10:55 98.4 98.4 Lab Values Laboratory Tests Test 07/07/18 11:14 07/07/18 14:10 White Blood Count 6.3 x10^3/uL (4.0-11.0) Red Blood Count 4.46 x10^6/uL (3.50-5.40) Hemoglobin 14.4 g/dL (12.0-15.5) Hematocrit 41.4 % (36.0-47.0) Mean Corpuscular Volume 93 fL (79-100) Mean Corpuscular Hemoglobin 32 pg (25-35) Mean Corpuscular Hemoglobin Concent 35 g/dL (31-37) Red Cell Distribution Width 14.1 % (11.5-14.5) Platelet Count 254 x10^3/uL (140-400) Neutrophils (%) (Auto) 79 % (31-73) H Lymphocytes (%) (Auto) 16 % (24-48) L Monocytes (%) (Auto) 5 % (0-9) Eosinophils (%) (Auto) 0 % (0-3) Basophils (%) (Auto) 1 % (0-3) Neutrophils # (Auto) 5.0 x10^3uL (1.8-7.7) Lymphocytes # (Auto) 1.0 x10^3/uL (1.0-4.8) Monocytes # (Auto) 0.3 x10^3/uL (0.0-1.1) Eosinophils # (Auto) 0.0 x10^3/uL (0.0-0.7) Basophils # (Auto) 0.0 x10^3/uL (0.0-0.2) Maternal Serum HCG Beta Subunit 1 mIU/mL (0-5) Sodium Level 143 mmol/L (136-145) Potassium Level 3.8 mmol/L (3.5-5.1) Chloride Level 104 mmol/L (98-107) Carbon Dioxide Level 26 mmol/L (21-32) Anion Gap 13 (6-14) Blood Urea Nitrogen 10 mg/dL (7-20) Creatinine 0.8 mg/dL (0.6-1.0) Estimated GFR (Cockcroft-Gault) 101.9 BUN/Creatinine Ratio 13 (6-20) Glucose Level 104 mg/dL (70-99) H Calcium Level 9.5 mg/dL (8.5-10.1) Total Bilirubin 0.6 mg/dL (0.2-1.0) Aspartate Amino Transferase (AST) 25 U/L (15-37) Alanine Aminotransferase (ALT) 33 U/L (14-59) Alkaline Phosphatase 53 U/L (46-116) Total Protein 7.6 g/dL (6.4-8.2) Albumin 4.0 g/dL (3.4-5.0) Albumin/Globulin Ratio 1.1 (1.0-1.7) Lipase 57 U/L (73-393) L Urine Collection Type Unknown Urine Color Yellow Urine Clarity Clear Urine pH 7.5 Urine Specific [place] >=1.030 Urine Protein 30 mg/dL (NEG-TRACE) Urine Glucose (UA) Negative mg/dL (NEG) Urine Ketones (Stick) 15 mg/dL (NEG) Urine Blood Negative (NEG) Urine Nitrite Negative (NEG) Urine Bilirubin Negative (NEG) Urine Urobilinogen Dipstick 0.2 mg/dL (0.2 mg/dL) Urine Leukocyte Esterase Negative (NEG) Urine RBC 0 /HPF (0-2) Urine WBC 0 /HPF (0-4) Urine Squamous Epithelial Cells Few /LPF Urine Bacteria 0 /HPF (0-FEW) Laboratory Tests 07/07/18 11:14 Laboratory Tests 07/07/18 11:14 EKG EKG [] Radiology/Procedures Radiology/Procedures []PROCEDURE: CT ABD PELV W/ IV CONTRST ONLY CT Abdomen and Pelvis With Intravenous Contrast: History: Right lower quadrant pain. Vomiting. Comparison: CT abdomen pelvis December 01, 2017. Technique: After administration of intravenous contrast, 75 mL Omnipaque-300, CT of the abdomen and pelvis was performed. Exposure: One or more of the following individualized dose reduction techniques were utilized for this examination: 1. Automated exposure control 2. Adjustment of the mA and/or kV according to patient size 3. Use of iterative reconstruction technique Findings: Evaluation of enteric structures may be limited by lack of oral contrast. Liver, spleen, pancreas, and bilateral adrenal glands are unremarkable. Gallbladder is absent. Bilateral kidneys enhance symmetrically. No bowel obstruction or inflammation is appreciated. Appendix is thought visualized and is without evidence of inflammation. Urinary bladder is unremarkable. Uterus and adnexa have grossly unremarkable appearance. No free air or significant free fluid is seen in the abdomen or pelvis. Impression: 1. No acute abnormality identified in the abdomen or pelvis. Electronically signed by: Pelon Mccoy MD (07/07/2018 1:46 PM) [facility] DICTATED and SIGNED BY: PELON MCCOY MD DATE: 07/07/18 8464 Course & Med Decision Making Course & Med Decision Making Pertinent Labs and Imaging studies reviewed. (See chart for details) This is a 28-year-old female patient presenting to the ED today with right lower quadrant abdominal pain radiating to the right flank with nausea and vomiting. Symptoms for 1 day. Patient arrived in the ED actively vomiting. Labs are negative for any acute findings including UA. CT of the abdomen and pelvic was done to rule out appendicitis considering RLQ pain, CT is negative. Patient was given IV fluids and nausea medicine. Also given pain medicine. Patient is feeling better. Discharged with instructions to follow-up with PCP in one week. Also provided GI for follow-up. Provided return precautions. Discharged in stable condition. Dragon Disclaimer Dragon Disclaimer This electronic medical record was generated, in whole or in part, using a voice recognition dictation system. Departure Departure Impression: Primary Impression: Nausea and vomiting Additional Impression: Right lower quadrant abdominal pain Disposition: HOME, SELF-CARE Condition: STABLE Referrals: KAVITA VÁSQUEZ MD (PCP) REJI PRABHAKAR MD follow up in one week Patient Instructions: Abdominal Pain, Nausea and Vomiting, [id number] Additional Instructions: You were evaluated in the medicines for abdominal pain with nausea and vomiting. Your workup was negative for any acute findings. Follow-up with your own primary care doctor the provided specialist. Come back to the ED at any point symptoms worsen. Scripts Dicyclomine Hcl (DICYCLOMINE HCL) 20 Mg Tablet 1 TAB PO TID, #30 TAB 1 Refill Prov: FRITZ BRAN APRN 07/07/18 Ondansetron (ZOFRAN ODT) 4 Mg Tab.rapdis 1 TAB SL Q8HRS, #15 TAB Prov: FRITZ BRAN APRN 07/07/18 Problem Qualifiers Primary Impression: Nausea and vomiting Vomiting type: unspecified Vomiting Intractability: unspecified Qualified Codes: R11.2 - Nausea with vomiting, unspecified SHANTFRITZ JUAN Jul 07, 2018 13:46
--- NOTE | 2018-07-07 13:50 | RAD ---
CT Abdomen and Pelvis With Intravenous Contrast: History: Right lower quadrant pain. Vomiting. Comparison: CT abdomen pelvis December 01, 2017. Technique: After administration of intravenous contrast, 75 mL Omnipaque-300, CT of the abdomen and pelvis was performed. Exposure: One or more of the following individualized dose reduction techniques were utilized for this examination: 1. Automated exposure control 2. Adjustment of the mA and/or kV according to patient size 3. Use of iterative reconstruction technique Findings: Evaluation of enteric structures may be limited by lack of oral contrast. Liver, spleen, pancreas, and bilateral adrenal glands are unremarkable. Gallbladder is absent. Bilateral kidneys enhance symmetrically. No bowel obstruction or inflammation is appreciated. Appendix is thought visualized and is without evidence of inflammation. Urinary bladder is unremarkable. Uterus and adnexa have grossly unremarkable appearance. No free air or significant free fluid is seen in the abdomen or pelvis. Impression: 1. No acute abnormality identified in the abdomen or pelvis. Electronically signed by: Pelon Baugh MD (07/07/2018 1:46 PM) [facility]
[2018-07-07 14:22] LABS: BILIRUBIN,URINE NEGATIVE (NEG); CLARITY,URINE CLEAR; COLOR,URINE YELLOW; NITRITE,URINE NEGATIVE (NEG); PH,URINE 7.5; PROTEIN,URINE 30 mg/dL (NEG-TRACE); UROBILINOGEN,URINE 0.2 mg/dL (0.2 mg/dL)
[2018-07-07 14:35] LABS: BACTERIA,URINE 0 /HPF (0-FEW); RBC,URINE 0 /HPF (0-2); SQUAMOUS EPITHELIAL CELL,UR FEW /LPF; WBC,URINE 0 /HPF (0-4)
[2018-07-07] MEDS ORDERED: HYDROcodone/APAP 5/325MG 1 TAB TABLET PO ONE (15:00)
[2018-07-07] MEDS ORDERED: DICYCLOMINE HCL 10 MG CAPSULE PO ONE (15:00)
[2018-07-07] MEDS ORDERED: ONDANSETRON ODT 4 MG TAB.RAPDIS. PO ONE (15:00)
[2018-07-07] MEDS ORDERED: ONDA4TAB10 SL (15:11)
[2018-07-07] MEDS ORDERED: DICY20TA3 PO (15:12)
[2018-07-07 15:37] LABS: BARBITURATES NEG (NEG); BENZODIAZEPINES NEG (NEG); CANNABINOIDS POS (NEG); COCAINE NEG (NEG); METHADONE NEG (NEG); OPIATES NEG (NEG); PHENCYCLIDINE NEG (NEG)
[2018-07-07 15:42] LABS: AMPHETAMINE/METHAMPHETAMINE NEG (NEG)
== END 2018-07-07 15:18 | disposition home or self-care (01) ==
LOC: ER 10:51
DX: R10.31 Right lower quadrant pain (principal); R11.2 Nausea with vomiting, unspecified; F41.9 Anxiety disorder, unspecified; F31.9 Bipolar disorder, unspecified; Z90.49 Acquired absence of other specified parts of digestive tract; Z88.5 Allergy status to narcotic agent; Z91.040 Latex allergy status
CPT/HCPCS: 36415; 74177; 80053; 80307; 81001; 83690; 84702; 85025; 96361; 96374; 96375; 99285; C9113; J2405; J3010; J7030; Q0162; Q9967; G0479

== ENCOUNTER 2018-07-17 05:50 | Emergency (ER) | payer SELFPAY ==
[~2018-07-17] VITALS: Ht 165.1 cm; Wt 63.5 kg
[~2018-07-17 05:50] MED LIST changes: +DICY20TA3 PO
[2018-07-17 06:25] VITALS: BP 134/76
[2018-07-17] MEDS ORDERED: HALOPERIDOL LACTATE 5 MG/ML VIAL. IM ONE (06:30)
[2018-07-17] MEDS ORDERED: IV NORMAL SALINE 1000ML BAG 1,000 ML IV ONE (06:30)
[2018-07-17] MEDS ORDERED: ONDANSETRON PF 4 MG/2 ML VIAL. IV ONE (06:30)
[2018-07-17 07:11] LABS: BASO % 1 % (0-3); EOS % 1 % (0-3); HEMATOCRIT 42.4 % (36.0-47.0); HEMOGLOBIN 14.7 g/dL (12.0-15.5); LYMPH # 1.7 x10^3/uL (1.0-4.8); LYMPH % 31 % (24-48); MEAN CORPUSCULAR HEMOGLOBIN 33 pg (25-35); MEAN CORPUSCULAR HGB CONC 35 g/dL (31-37); MEAN CORPUSCULAR VOLUME 94 fL (79-100); MONO # 0.4 x10^3/uL (0.0-1.1); MONO % 7 % (0-9); NEUT # 3.4 x10^3uL (1.8-7.7); NEUT % 61 % (31-73); PLATELET COUNT 280 x10^3/uL (140-400); RED BLOOD COUNT 4.52 x10^6/uL (3.50-5.40); RED CELL DISTRIBUTION WIDTH 14.3 % (11.5-14.5); WHITE BLOOD COUNT 5.6 x10^3/uL (4.0-11.0)
[2018-07-17] MEDS ORDERED: HALOPERIDOL LACTATE 5 MG/ML VIAL. IVP ONE (07:15)
[2018-07-17 07:20] LABS: CALCIUM 9.8 mg/dL (8.5-10.1); CREATININE 0.5 mg/dL (0.6-1.0); GFR 175.3
[2018-07-17 07:21] LABS: POTASSIUM 4.8 mmol/L (3.5-5.1)
[2018-07-17 07:26] LABS: ALBUMIN 4.1 g/dL (3.4-5.0); ALBUMIN/GLOBULIN RATIO 1.2 (1.0-1.7); TOTAL BILIRUBIN 0.4 mg/dL (0.2-1.0); TOTAL PROTEIN 7.6 g/dL (6.4-8.2)
[2018-07-17 07:45] LABS: BILIRUBIN,URINE NEGATIVE (NEG); CLARITY,URINE CLEAR; COLOR,URINE YELLOW; NITRITE,URINE NEGATIVE (NEG); PROTEIN,URINE NEGATIVE (NEG-TRACE); UROBILINOGEN,URINE 0.2 mg/dL (0.2 mg/dL)
[2018-07-17 07:54] LABS: BACTERIA,URINE 0 /HPF (0-FEW); RBC,URINE 0 /HPF (0-2); SQUAMOUS EPITHELIAL CELL,UR FEW /LPF; WBC,URINE 0 /HPF (0-4)
[2018-07-17] MEDS ORDERED: HYDROcodone/APAP 5/325MG 1 TAB TABLET PO ONE (08:00)
[2018-07-17] MEDS ORDERED: METOCLOPRAMIDE HCL 10 MG/2 ML VIAL. IV ONE (08:00)
[2018-07-17] MEDS ORDERED: diphenhydrAMINE 50 MG/ML VIAL IVP ONE (08:00)
--- NOTE | 2018-07-17 08:21 | PHYS DOC ---
Past Medical History Past Medical History: Other Additional Past Medical Histor: chronic abd pain Past Surgical History: Cholecystectomy Alcohol Use: Occasionally Drug Use: Marijuana Adult General Chief Complaint Chief Complaint: ABDOMINAL PAIN HPI HPI Patient is a 28 year old female presents with abdominal pain epigastric diffuse periumbilical also feeling in her chest she's had this several times on a recurrent basis over the past several years she says for 5 years or more she had a CT scan July 07 that was negative she has had a total of 6 CT scans in the last year and a half according to her chart review. History limited by the patient's severity pain Mother does note that the patient improves her symptoms when she takes a hot shower. Patient does smoke marijuana. Review of Systems Review of Systems Limited by severity pain Current Medications Current Medications Current Medications Medications (Trade) Dose Ordered Sig/Parveen Start Time Stop Time Status Last Admin Dose Admin Acetaminophen/ Hydrocodone Bitart (Lortab 5/325) 2 tab 1X ONCE 07/17/18 08:00 07/17/18 08:01 DC 07/17/18 08:04 2 TAB Diphenhydramine HCl (Benadryl) 25 mg 1X ONCE 07/17/18 08:00 07/17/18 08:01 DC 07/17/18 08:04 25 MG Haloperidol Lactate (Haldol Inj) 5 mg 1X ONCE 07/17/18 07:15 07/17/18 07:16 DC 07/17/18 07:14 5 MG Metoclopramide HCl (Reglan Vial) 10 mg 1X ONCE 07/17/18 08:00 07/17/18 08:01 DC 07/17/18 08:04 10 MG Ondansetron HCl (Zofran) 4 mg 1X ONCE 07/17/18 06:30 07/17/18 06:31 DC 07/17/18 07:12 4 MG Sodium Chloride 1,000 ml @ 1,000 mls/hr 1X ONCE 07/17/18 06:30 07/17/18 07:29 DC 07/17/18 07:12 1,000 MLS/HR Allergies Allergies Allergies Coded Allergies Type Severity Reaction Last Updated Verified Latex, Natural Rubber Allergy Intermediate 05/13/17 Yes morphine Allergy Intermediate 05/13/17 Yes Physical Exam Physical Exam Constitutional: Well developed, well nourished, moderate distress patient vomiting HENT: Normocephalic, atraumatic, bilateral external ears normal, oropharynx moist, no oral exudates, nose normal. [] Eyes: PERRLA, EOMI, conjunctiva normal, no discharge. [] Neck: Normal range of motion, no tenderness, supple, no stridor. [] Pulmonary: Normal respiratory effort no increased work of breathing no obvious chest wall trauma Abdomen: Bowel sounds normal, soft, epigastric tenderness, no masses, no pulsatile masses. [] Skin: Warm, dry, no erythema, no rash. [] Back: No tenderness, no CVA tenderness. [] Extremities: No tenderness, no cyanosis, no clubbing, ROM intact, no edema. [] Neurologic: Alert and oriented X 3, normal motor function, normal sensory function, no focal deficits noted. [] Psychologic: Agitated and anxious Current Patient Data Vital Signs Vital Signs Date Time Temp Pulse Resp B/P (MAP) Pulse Ox O2 Delivery O2 Flow Rate FiO2 07/17/18 08:04 22 99 07/17/18 06:25 98.6 64 134/76 (95) Room Air 98.6 Lab Values Laboratory Tests Test 07/17/18 06:55 07/17/18 07:20 07/17/18 07:29 White Blood Count 5.6 x10^3/uL (4.0-11.0) Red Blood Count 4.52 x10^6/uL (3.50-5.40) Hemoglobin 14.7 g/dL (12.0-15.5) Hematocrit 42.4 % (36.0-47.0) Mean Corpuscular Volume 94 fL (79-100) Mean Corpuscular Hemoglobin 33 pg (25-35) Mean Corpuscular Hemoglobin Concent 35 g/dL (31-37) Red Cell Distribution Width 14.3 % (11.5-14.5) Platelet Count 280 x10^3/uL (140-400) Neutrophils (%) (Auto) 61 % (31-73) Lymphocytes (%) (Auto) 31 % (24-48) Monocytes (%) (Auto) 7 % (0-9) Eosinophils (%) (Auto) 1 % (0-3) Basophils (%) (Auto) 1 % (0-3) Neutrophils # (Auto) 3.4 x10^3uL (1.8-7.7) Lymphocytes # (Auto) 1.7 x10^3/uL (1.0-4.8) Monocytes # (Auto) 0.4 x10^3/uL (0.0-1.1) Eosinophils # (Auto) 0.0 x10^3/uL (0.0-0.7) Basophils # (Auto) 0.0 x10^3/uL (0.0-0.2) Sodium Level 143 mmol/L (136-145) Potassium Level 4.8 mmol/L (3.5-5.1) Chloride Level 104 mmol/L (98-107) Carbon Dioxide Level 21 mmol/L (21-32) Anion Gap 18 (6-14) H Blood Urea Nitrogen 6 mg/dL (7-20) L Creatinine 0.5 mg/dL (0.6-1.0) L Estimated GFR (Cockcroft-Gault) 175.3 BUN/Creatinine Ratio 12 (6-20) Glucose Level 106 mg/dL (70-99) H Calcium Level 9.8 mg/dL (8.5-10.1) Magnesium Level 2.0 mg/dL (1.8-2.4) Total Bilirubin 0.4 mg/dL (0.2-1.0) Aspartate Amino Transferase (AST) 26 U/L (15-37) Alanine Aminotransferase (ALT) 24 U/L (14-59) Alkaline Phosphatase 54 U/L (46-116) Total Protein 7.6 g/dL (6.4-8.2) Albumin 4.1 g/dL (3.4-5.0) Albumin/Globulin Ratio 1.2 (1.0-1.7) Lipase 66 U/L (73-393) L Urine Collection Type Unknown Urine Color Yellow Urine Clarity Clear Urine pH 6.0 Urine Specific [place] 1.025 Urine Protein Negative mg/dL (NEG-TRACE) Urine Glucose (UA) Negative mg/dL (NEG) Urine Ketones (Stick) 15 mg/dL (NEG) Urine Blood Moderate (NEG) Urine Nitrite Negative (NEG) Urine Bilirubin Negative (NEG) Urine Urobilinogen Dipstick 0.2 mg/dL (0.2 mg/dL) Urine Leukocyte Esterase Negative (NEG) Urine RBC 0 /HPF (0-2) Urine WBC 0 /HPF (0-4) Urine Squamous Epithelial Cells Few /LPF Urine Bacteria 0 /HPF (0-FEW) POC Urine HCG, Qualitative Hcg negative (Negative) Laboratory Tests 07/17/18 06:55 Laboratory Tests 07/17/18 06:55 EKG EKG [] Radiology/Procedures Radiology/Procedures [] Course & Med Decision Making Course & Med Decision Making Pertinent Labs and Imaging studies reviewed. (See chart for details) []28-year-old female with chronic intermittent abdominal pain. Multiple negative CT scans she's had a gallbladder removal. I suspect cannabis hyperemesis syndrome. I did note this to the mother and patient after reviewing her chart in detail and after hearing about the improvement after taking a hot shower. This is highly suspicious for cannabis hyperemesis in general. They express some frustration about this diagnosis. I did review the number of CT scans the patient has had all of which have been normal patient was treated in the emergency room with Haldol and Zofran and then a repeat dose of Reglan and Benadryl on an oral d dose of pain medication. She was improving at 8:15 AM when I went back to reevaluate her. I did strongly encourage a abstinence from marijuana to see if she feels better. This is the best thing for her. She is agreeable Dragon Disclaimer Dragon Disclaimer This electronic medical record was generated, in whole or in part, using a voice recognition dictation system. Departure Departure Impression: Primary Impression: Abdominal pain Disposition: 01 HOME, SELF-CARE Condition: STABLE Referrals: KAVITA VÁSQUEZ MD (PCP) Patient Instructions: Abdominal Pain (Nonspecific) DEMETRIS SEALS MD Jul 17, 2018 08:20
[2018-07-18] MEDS ORDERED: METO10TA81 PO (20:54)
[2018-07-18] MEDS ORDERED: DICY10CA3 PO (20:54)
== END 2018-07-17 08:30 | disposition home or self-care (01) ==
LOC: ER 05:50
DX: R10.13 Epigastric pain (principal); G89.29 Other chronic pain; F12.10 Cannabis abuse, uncomplicated; Z88.5 Allergy status to narcotic agent; Z90.49 Acquired absence of other specified parts of digestive tract; Z91.040 Latex allergy status
CPT/HCPCS: 36415; 80053; 81001; 81025; 83690; 83735; 85025; 96374; 96375; 99284; J1200; J1630; J2405; J2765; J7030

== ENCOUNTER 2018-07-18 18:58 | Emergency (ER) | payer SELFPAY ==
[~2018-07-18] VITALS: Ht 167.6 cm; Wt 63.5 kg
[2018-07-18] MEDS ORDERED: IV NORMAL SALINE 1000ML BAG 1,000 ML IV SCH (19:35)
[2018-07-18 19:45] LABS: BILIRUBIN,URINE SMALL (NEG); CLARITY,URINE CLEAR; COLOR,URINE AMBER; NITRITE,URINE NEGATIVE (NEG); PH,URINE 5.5; PROTEIN,URINE 30 mg/dL (NEG-TRACE); UROBILINOGEN,URINE 0.2 mg/dL (0.2 mg/dL)
[2018-07-18] MEDS ORDERED: diphenhydrAMINE 50 MG/ML VIAL IVP ONE (19:45)
[2018-07-18] MEDS ORDERED: METOCLOPRAMIDE HCL 10 MG/2 ML VIAL. IV ONE (19:45)
[2018-07-18 19:51] LABS: BACTERIA,URINE 0 /HPF (0-FEW); SQUAMOUS EPITHELIAL CELL,UR FEW /LPF; WBC,URINE OCC /HPF (0-4)
[2018-07-18 19:53] LABS: BASO % 1 % (0-3); EOS % 0 % (0-3); HEMATOCRIT 43.7 % (36.0-47.0); LYMPH % 18 % (24-48); MEAN CORPUSCULAR HEMOGLOBIN 32 pg (25-35); MEAN CORPUSCULAR HGB CONC 34 g/dL (31-37); MEAN CORPUSCULAR VOLUME 94 fL (79-100); MONO # 0.3 x10^3/uL (0.0-1.1); MONO % 5 % (0-9); NEUT # 4.2 x10^3uL (1.8-7.7); NEUT % 77 % (31-73); PLATELET COUNT 297 x10^3/uL (140-400); RED BLOOD COUNT 4.65 x10^6/uL (3.50-5.40); RED CELL DISTRIBUTION WIDTH 14.3 % (11.5-14.5); WHITE BLOOD COUNT 5.4 x10^3/uL (4.0-11.0)
[2018-07-18 19:58] LABS: BARBITURATES NEG (NEG); BENZODIAZEPINES NEG (NEG); CANNABINOIDS POS (NEG); COCAINE NEG (NEG); METHADONE NEG (NEG); OPIATES POS (NEG); PHENCYCLIDINE NEG (NEG)
[2018-07-18 20:02] LABS: CALCIUM 10.1 mg/dL (8.5-10.1); CREATININE 0.8 mg/dL (0.6-1.0); GFR 101.9; POTASSIUM 3.9 mmol/L (3.5-5.1)
[2018-07-18 20:07] LABS: AMPHETAMINE/METHAMPHETAMINE NEG (NEG)
[2018-07-18 20:10] LABS: ALBUMIN 4.9 g/dL (3.4-5.0); ALBUMIN/GLOBULIN RATIO 1.4 (1.0-1.7); TOTAL BILIRUBIN 0.7 mg/dL (0.2-1.0); TOTAL PROTEIN 8.4 g/dL (6.4-8.2)
[2018-07-18] MEDS ORDERED: DICYCLOMINE 20 MG/2 ML AMPUL. IM ONE (20:30)
[2018-07-18] MEDS ORDERED: PROCHLORPERAZINE 10 MG/2 ML VIAL. IV ONE (20:30)
[2018-07-18 20:54] VITALS: BP 144/72
[2018-07-18] MEDS ORDERED: DICY10CA3 PO (20:54)
[2018-07-18] MEDS ORDERED: METO10TA81 PO (20:54)
--- NOTE | 2018-07-18 20:54 | PHYS DOC ---
Past Medical History Past Medical History: Other Additional Past Medical Histor: chronic abd pain Past Surgical History: Cholecystectomy Alcohol Use: Occasionally Drug Use: Marijuana Adult General Chief Complaint Chief Complaint: NAUSEA/VOMITING/DIARRHA HPI HPI Patient is a 28-year-old female who presents with complaint of continued abdominal cramping with nausea and vomiting. Patient was seen yesterday for the same complaint and was discharged home with instructions to discontinue marijuana usage. Patient states that she has not been smoking marijuana since before yesterday but she does admit that she continues to vape marijuana. She rates the pain in her abdomen and a 6 out of 10. She states that she had filled the medications that had been prescribed yesterday and she continues to have vomiting. She denies any fever. She does indicate that she has seen a GI specialist in the past for similar symptoms but the last time she saw a GI specialist was back in 2016 right before her gallbladder was removed. He states that her symptoms are worsened with eating and drinking. She states that nothing seems to improve her symptoms. Review of Systems Review of Systems Constitutional: Denies fever or chills [] Respiratory: Denies cough or shortness of breath [] Cardiovascular: Denies chest pain[] GI: Complains of abdominal cramping with nausea and vomiting[] : Denies dysuria or hematuria [] Musculoskeletal: Denies back pain or joint pain [] All other systems were reviewed and found to be within normal limits, except as documented in this note. Current Medications Current Medications Current Medications Medications (Trade) Dose Ordered Sig/Parveen Start Time Stop Time Status Last Admin Dose Admin Dicyclomine HCl (Bentyl) 10 mg 1X ONCE 07/18/18 20:30 07/18/18 20:31 DC 07/18/18 20:23 10 MG Diphenhydramine HCl (Benadryl) 25 mg 1X ONCE 07/18/18 19:45 07/18/18 19:46 DC 07/18/18 19:49 25 MG Metoclopramide HCl (Reglan Vial) 10 mg 1X ONCE 07/18/18 19:45 07/18/18 19:46 DC 07/18/18 19:49 10 MG Prochlorperazine Edisylate (Compazine) 10 mg 1X ONCE 07/18/18 20:30 07/18/18 20:31 DC 07/18/18 20:29 10 MG Sodium Chloride 1,000 ml @ 1,000 mls/hr Q1H 07/18/18 19:35 07/18/18 20:34 DC 07/18/18 19:49 1,000 MLS/HR Allergies Allergies Allergies Coded Allergies Type Severity Reaction Last Updated Verified Latex, Natural Rubber Allergy Intermediate 05/13/17 Yes morphine Allergy Intermediate 05/13/17 Yes Physical Exam Physical Exam Constitutional: Well developed, well nourished, no acute distress, non-toxic appearance. [] HENT: Normocephalic, atraumatic, bilateral external ears normal, oropharynx moist, no oral exudates, nose normal. [] Eyes: PERRLA, EOMI, conjunctiva normal, no discharge. [] Neck: Normal range of motion, no tenderness, supple, no stridor. [] Cardiovascular:Heart rate regular rhythm [] Lungs & Thorax: Bilateral breath sounds clear to auscultation [] Abdomen: Bowel sounds normal, soft, with epigastric tenderness. [] Skin: Warm, dry, no erythema, no rash. [] Extremities: No tenderness, no cyanosis, no clubbing, ROM intact, no edema. [] Neurologic: Alert and oriented X 3, normal motor function, normal sensory function, no focal deficits noted. [] Current Patient Data Vital Signs Vital Signs Date Time Temp Pulse Resp B/P (MAP) Pulse Ox O2 Delivery O2 Flow Rate FiO2 07/18/18 19:20 98.2 58 14 151/80 (103) 99 Room Air 98.2 Lab Values Laboratory Tests Test 07/18/18 19:24 07/18/18 19:40 Urine Collection Type Unknown Urine Color [place] Urine Clarity Clear Urine pH 5.5 Urine Specific [place] >=1.030 Urine Protein 30 mg/dL (NEG-TRACE) Urine Glucose (UA) Negative mg/dL (NEG) Urine Ketones (Stick) >=80 mg/dL (NEG) Urine Blood Trace (NEG) Urine Nitrite Negative (NEG) Urine Bilirubin Small (NEG) Urine Urobilinogen Dipstick 0.2 mg/dL (0.2 mg/dL) Urine Leukocyte Esterase Negative (NEG) Urine RBC 1-2 /HPF (0-2) Urine WBC Occ /HPF (0-4) Urine Squamous Epithelial Cells Few /LPF Urine Bacteria 0 /HPF (0-FEW) Urine Mucus Mod /LPF Urine Opiates Screen Pos (NEG) Urine Methadone Screen Neg (NEG) Urine Barbiturates Neg (NEG) Urine Phencyclidine Screen Neg (NEG) Urine Amphetamine/Methamphetamine Neg (NEG) Urine Benzodiazepines Screen Neg (NEG) Urine Cocaine Screen Neg (NEG) Urine Cannabinoids Screen Pos (NEG) Urine Ethyl Alcohol Neg (NEG) White Blood Count 5.4 x10^3/uL (4.0-11.0) Red Blood Count 4.65 x10^6/uL (3.50-5.40) Hemoglobin 15.0 g/dL (12.0-15.5) Hematocrit 43.7 % (36.0-47.0) Mean Corpuscular Volume 94 fL (79-100) Mean Corpuscular Hemoglobin 32 pg (25-35) Mean Corpuscular Hemoglobin Concent 34 g/dL (31-37) Red Cell Distribution Width 14.3 % (11.5-14.5) Platelet Count 297 x10^3/uL (140-400) Neutrophils (%) (Auto) 77 % (31-73) H Lymphocytes (%) (Auto) 18 % (24-48) L Monocytes (%) (Auto) 5 % (0-9) Eosinophils (%) (Auto) 0 % (0-3) Basophils (%) (Auto) 1 % (0-3) Neutrophils # (Auto) 4.2 x10^3uL (1.8-7.7) Lymphocytes # (Auto) 1.0 x10^3/uL (1.0-4.8) Monocytes # (Auto) 0.3 x10^3/uL (0.0-1.1) Eosinophils # (Auto) 0.0 x10^3/uL (0.0-0.7) Basophils # (Auto) 0.0 x10^3/uL (0.0-0.2) Sodium Level 141 mmol/L (136-145) Potassium Level 3.9 mmol/L (3.5-5.1) Chloride Level 100 mmol/L (98-107) Carbon Dioxide Level 23 mmol/L (21-32) Anion Gap 18 (6-14) H Blood Urea Nitrogen 8 mg/dL (7-20) Creatinine 0.8 mg/dL (0.6-1.0) Estimated GFR (Cockcroft-Gault) 101.9 BUN/Creatinine Ratio 10 (6-20) Glucose Level 99 mg/dL (70-99) Calcium Level 10.1 mg/dL (8.5-10.1) Total Bilirubin 0.7 mg/dL (0.2-1.0) Aspartate Amino Transferase (AST) 23 U/L (15-37) Alanine Aminotransferase (ALT) 30 U/L (14-59) Alkaline Phosphatase 63 U/L (46-116) Total Protein 8.4 g/dL (6.4-8.2) H Albumin 4.9 g/dL (3.4-5.0) Albumin/Globulin Ratio 1.4 (1.0-1.7) Lipase 57 U/L (73-393) L Laboratory Tests 07/18/18 19:40 Laboratory Tests 07/18/18 19:40 EKG EKG [] Radiology/Procedures Radiology/Procedures [] Course & Med Decision Making Course & Med Decision Making Pertinent Labs and Imaging studies reviewed. (See chart for details) An IV was established and blood work was drawn. Patient given a liter of IV fluids and has been given doses of IV Reglan and Benadryl. She was later given a dose of fentanyl as well as Compazine. Findings of workup have been reviewed with her and I have reemphasized the importance of discontinuing use of cannabis products. Patient states that she will take my recommendations into account and consider stopping using cannabis. I have also encouraged patient to reestablish care with a GI specialist for further evaluation and follow-up with her primary care provider in the next few days. Dragon Disclaimer Dragon Disclaimer This electronic medical record was generated, in whole or in part, using a voice recognition dictation system. Departure Departure Impression: Primary Impression: Cannabinoid hyperemesis syndrome Disposition: 01 HOME, SELF-CARE Condition: STABLE Referrals: KAVITA VÁSQUEZ MD (PCP) Patient Instructions: Cyclic Vomiting Syndrome, Marijuana Abuse-Brief, Nausea and Vomiting Additional Instructions: Take prescribed medications as directed and discontinue use of marijuana/ cannabis containing products. Follow-up with your primary care provider in the next 2-3 days and I would recommend reestablishing care with gastroenterology. Scripts Dicyclomine Hcl (DICYCLOMINE HCL) 10 Mg Capsule 1 CAP PO TID PRN for abdominal cramping/pain, #15 CAP 11 Refills Prov: RAHEEM ALFREDO Jr. DO 07/18/18 Metoclopramide Hcl (REGLAN) 10 Mg Tablet 10 MG PO QIDACHS PRN for NAUSEA/VOMITING, #20 TAB 0 Refills Prov: RAHEEM ALFREDO Jr. DO 07/18/18 RAHEEM ALFREDO Jr. DO Jul 18, 2018 20:54
[2018-07-18] MEDS ORDERED: ONDANSETRON PF 4 MG/2 ML VIAL. IV ONE (21:00)
== END 2018-07-18 21:13 | disposition home or self-care (01) ==
LOC: ER 18:58
DX: F12.188 Cannabis abuse with other cannabis-induced disorder (principal); R11.2 Nausea with vomiting, unspecified; R10.13 Epigastric pain; G89.29 Other chronic pain; Z90.49 Acquired absence of other specified parts of digestive tract; Z88.5 Allergy status to narcotic agent; Z91.040 Latex allergy status
CPT/HCPCS: 36415; 80053; 80307; 81001; 83690; 85025; 96361; 96372; 96374; 96375; 99284; J0500; J0780; J1200; J2405; J2765; J7030; G0479

== ENCOUNTER 2018-07-26 16:24 | Emergency (ER) | payer SELFPAY ==
[~2018-07-26] VITALS: Ht 160 cm; Wt 49.0 kg
[~2018-07-26 16:24] MED LIST changes: +DICY10CA3 PO; +METO10TA81 PO
[2018-07-26 17:32] LABS: BASO # 0.1 x10^3/uL (0.0-0.2); BASO % 1 % (0-3); EOS % 0 % (0-3); HEMATOCRIT 44.3 % (36.0-47.0); HEMOGLOBIN 15.6 g/dL (12.0-15.5); LYMPH # 2.2 x10^3/uL (1.0-4.8); LYMPH % 33 % (24-48); MEAN CORPUSCULAR HEMOGLOBIN 33 pg (25-35); MEAN CORPUSCULAR HGB CONC 35 g/dL (31-37); MEAN CORPUSCULAR VOLUME 94 fL (79-100); MONO # 0.5 x10^3/uL (0.0-1.1); MONO % 8 % (0-9); NEUT # 3.9 x10^3uL (1.8-7.7); NEUT % 59 % (31-73); PLATELET COUNT 289 x10^3/uL (140-400); RED BLOOD COUNT 4.71 x10^6/uL (3.50-5.40); RED CELL DISTRIBUTION WIDTH 14.2 % (11.5-14.5); WHITE BLOOD COUNT 6.6 x10^3/uL (4.0-11.0)
[2018-07-26] MEDS ORDERED: diphenhydrAMINE 50 MG/ML VIAL IVP ONE (17:45)
[2018-07-26] MEDS ORDERED: DICYCLOMINE 20 MG/2 ML AMPUL. IM ONE (17:45)
[2018-07-26] MEDS ORDERED: ONDANSETRON PF 4 MG/2 ML VIAL. IV ONE ×2 (17:45→19:00)
[2018-07-26] MEDS ORDERED: IV NORMAL SALINE 1000ML BAG 1,000 ML IV ONE (17:45)
[2018-07-26 18:05] LABS: CREATININE 0.9 mg/dL (0.6-1.0); POTASSIUM 3.2 mmol/L (3.5-5.1)
[2018-07-26 18:11] LABS: ALBUMIN 4.6 g/dL (3.4-5.0); ALBUMIN/GLOBULIN RATIO 1.3 (1.0-1.7); TOTAL BILIRUBIN 0.7 mg/dL (0.2-1.0); TOTAL PROTEIN 8.2 g/dL (6.4-8.2)
[2018-07-26 18:25] LABS: BILIRUBIN,URINE MODERATE (NEG); CLARITY,URINE CLOUDY; COLOR,URINE AMBER; NITRITE,URINE NEGATIVE (NEG); PROTEIN,URINE 100 mg/dL (NEG-TRACE); UROBILINOGEN,URINE 0.2 mg/dL (0.2 mg/dL)
[2018-07-26 18:30] LABS: RBC,URINE 0 /HPF (0-2)
[2018-07-26] MEDS ORDERED: POTASSIUM CHLORIDE 20 MEQ TABLET.ER. PO ONE (18:30)
[2018-07-26 18:31] LABS: BACTERIA,URINE 0 /HPF (0-FEW); SQUAMOUS EPITHELIAL CELL,UR FEW /LPF; U PREG PATIENT NEGATIVE (NEG)
--- NOTE | 2018-07-26 18:44 | PHYS DOC ---
Past Medical History Past Medical History: Asthma, Other Additional Past Medical Histor: chronic abd pain Past Surgical History: Cholecystectomy Alcohol Use: Occasionally Drug Use: Marijuana Adult General Chief Complaint Chief Complaint: NAUSEA/VOMITING/DIARRHA HPI HPI 28-year-old female returns to ER for complaints of N/V, abd pain, and fatigue. She was seen last Tuesday and Tuesday in the ER and seen for similar sxs. She reports she was seen by her primary care physician on Tuesday and is scheduled with Dr. Flavio AMAYA on 08/07/18. Review of Systems Review of Systems Constitutional: Denies fever or chills [] Eyes: Denies change in visual acuity, redness, or eye pain [] HENT: Denies nasal congestion or sore throat [] Respiratory: Denies cough or shortness of breath [] Cardiovascular: No additional information not addressed in HPI [] GI: Denies abdominal pain, nausea, vomiting, bloody stools or diarrhea [] : Denies dysuria or hematuria [] Musculoskeletal: Denies back pain or joint pain [] Integument: Denies rash or skin lesions [] Neurologic: Denies headache, focal weakness or sensory changes [] Endocrine: Denies polyuria or polydipsia [] All other systems were reviewed and found to be within normal limits, except as documented in this note. Current Medications Current Medications Current Medications Medications (Trade) Dose Ordered Sig/Parveen Start Time Stop Time Status Last Admin Dose Admin Dicyclomine HCl (Bentyl) 20 mg 1X ONCE 07/26/18 17:45 07/26/18 17:46 DC 07/26/18 18:11 20 MG Diphenhydramine HCl (Benadryl) 25 mg 1X ONCE 07/26/18 17:45 07/26/18 17:46 DC 07/26/18 18:10 25 MG Ondansetron HCl (Zofran) 4 mg 1X ONCE 07/26/18 19:00 07/26/18 19:01 DC Potassium Chloride (Klor-Con) 40 meq 1X ONCE 07/26/18 18:30 07/26/18 18:31 DC Sodium Chloride 1,000 ml @ 1,000 mls/hr 1X ONCE 07/26/18 17:45 07/26/18 18:44 DC 07/26/18 18:10 1,000 MLS/HR Allergies Allergies Allergies Coded Allergies Type Severity Reaction Last Updated Verified Latex, Natural Rubber Allergy Intermediate 05/13/17 Yes morphine Allergy Intermediate 05/13/17 Yes Physical Exam Physical Exam Constitutional: Well developed, well nourished, no acute distress, non-toxic appearance. [] HENT: Normocephalic, atraumatic, bilateral external ears normal, oropharynx moist, no oral exudates, nose normal. [] Eyes: PERRLA, EOMI, conjunctiva normal, no discharge. [] Neck: Normal range of motion, no tenderness, supple, no stridor. [] Cardiovascular:Heart rate regular rhythm, no murmur [] Lungs & Thorax: Bilateral breath sounds clear to auscultation [] Abdomen: Bowel sounds normal, soft, no tenderness, no masses, no pulsatile masses. [] Skin: Warm, dry, no erythema, no rash. [] Back: No tenderness, no CVA tenderness. [] Extremities: No tenderness, no cyanosis, no clubbing, ROM intact, no edema. [] Neurologic: Alert and oriented X 3, normal motor function, normal sensory function, no focal deficits noted. [] Psychologic: Affect normal, judgement normal, mood normal. [] Current Patient Data Vital Signs Vital Signs Date Time Temp Pulse Resp B/P (MAP) Pulse Ox O2 Delivery O2 Flow Rate FiO2 07/26/18 16:30 98.5 60 18 161/80 (107) 99 Room Air 98.5 Lab Values Laboratory Tests Test 07/26/18 16:50 07/26/18 17:50 07/26/18 18:00 07/26/18 18:16 White Blood Count 6.6 x10^3/uL (4.0-11.0) Red Blood Count 4.71 x10^6/uL (3.50-5.40) Hemoglobin 15.6 g/dL (12.0-15.5) H Hematocrit 44.3 % (36.0-47.0) Mean Corpuscular Volume 94 fL (79-100) Mean Corpuscular Hemoglobin 33 pg (25-35) Mean Corpuscular Hemoglobin Concent 35 g/dL (31-37) Red Cell Distribution Width 14.2 % (11.5-14.5) Platelet Count 289 x10^3/uL (140-400) Neutrophils (%) (Auto) 59 % (31-73) Lymphocytes (%) (Auto) 33 % (24-48) Monocytes (%) (Auto) 8 % (0-9) Eosinophils (%) (Auto) 0 % (0-3) Basophils (%) (Auto) 1 % (0-3) Neutrophils # (Auto) 3.9 x10^3uL (1.8-7.7) Lymphocytes # (Auto) 2.2 x10^3/uL (1.0-4.8) Monocytes # (Auto) 0.5 x10^3/uL (0.0-1.1) Eosinophils # (Auto) 0.0 x10^3/uL (0.0-0.7) Basophils # (Auto) 0.1 x10^3/uL (0.0-0.2) Sodium Level 138 mmol/L (136-145) Potassium Level 3.2 mmol/L (3.5-5.1) L Chloride Level 97 mmol/L (98-107) L Carbon Dioxide Level 29 mmol/L (21-32) Anion Gap 12 (6-14) Blood Urea Nitrogen 13 mg/dL (7-20) Creatinine 0.9 mg/dL (0.6-1.0) Estimated GFR (Cockcroft-Gault) 89.0 BUN/Creatinine Ratio 14 (6-20) Glucose Level 89 mg/dL (70-99) Calcium Level 10.0 mg/dL (8.5-10.1) Total Bilirubin 0.7 mg/dL (0.2-1.0) Aspartate Amino Transferase (AST) 25 U/L (15-37) Alanine Aminotransferase (ALT) 42 U/L (14-59) Alkaline Phosphatase 57 U/L (46-116) Total Protein 8.2 g/dL (6.4-8.2) Albumin 4.6 g/dL (3.4-5.0) Albumin/Globulin Ratio 1.3 (1.0-1.7) Lipase 54 U/L (73-393) L Urine Collection Type Unknown Urine Color [place] Urine Clarity Cloudy Urine pH 6.0 Urine Specific [place] >=1.030 Urine Protein 100 mg/dL (NEG-TRACE) Urine Glucose (UA) Negative mg/dL (NEG) Urine Ketones (Stick) >=80 mg/dL (NEG) Urine Blood Negative (NEG) Urine Nitrite Negative (NEG) Urine Bilirubin Moderate (NEG) Urine Urobilinogen Dipstick 0.2 mg/dL (0.2 mg/dL) Urine Leukocyte Esterase Negative (NEG) Urine RBC 0 /HPF (0-2) Urine WBC 1-4 /HPF (0-4) Urine Squamous Epithelial Cells Few /LPF Urine Bacteria 0 /HPF (0-FEW) Urine Mucus Marked /LPF Urine Test Negative (NEG) POC Urine HCG, Qualitative Hcg negative (Negative) Laboratory Tests 07/26/18 16:50 Laboratory Tests 07/26/18 17:50 EKG EKG [] Radiology/Procedures Radiology/Procedures [] Course & Med Decision Making Course & Med Decision Making Pertinent Labs reviewed. (See chart for details) 1832: Discussed test results with patient potassium was 3.2 will replace with 40 mEq oral potassium while in the ER. Pt reports she has had improvement in sxs with tx received in ER. She denies any vomiting episodes while in the ER. We will provide additional dose of IV Zofran while IV fluids are infusing. Patient at this time is in no visible distress and remains nontoxic in appearance. Dragon Disclaimer Dragon Disclaimer This electronic medical record was generated, in whole or in part, using a voice recognition dictation system. Departure Departure Impression: Primary Impression: Abdominal pain Additional Impression: Vomiting Disposition: 01 HOME, SELF-CARE Condition: STABLE Referrals: KAVITA VÁSQUEZ MD (PCP) Patient Instructions: Abdominal Pain, Nausea and Vomiting Additional Instructions: Keep scheduled appointment with Dr. Muniz, GI. Continue home medications as previously prescribed. Problem Qualifiers BRIDGETHEATHLalitha Longoria [employer] Jul 26, 2018 18:44
[2018-07-26 20:04] VITALS: BP 165/87
== END 2018-07-26 20:11 | disposition home or self-care (01) ==
LOC: ER 16:24
DX: R11.2 Nausea with vomiting, unspecified (principal); R10.9 Unspecified abdominal pain; R53.83 Other fatigue; G89.29 Other chronic pain; J45.909 Unspecified asthma, uncomplicated; Z90.49 Acquired absence of other specified parts of digestive tract; Z88.5 Allergy status to narcotic agent; Z91.040 Latex allergy status
CPT/HCPCS: 36415; 80053; 81001; 81025; 83690; 85025; 96361; 96372; 96374; 96375; 99284; J0500; J1200; J2405; J7030

== ENCOUNTER 2018-11-29 12:15 | Emergency (ER) | payer SELFPAY ==
[~2018-11-29] VITALS: Ht 160 cm; Wt 54.4 kg
[~2018-11-29 12:15] MED LIST changes: -HYDR-2758 PO; +HYDR-2761 PO; +HYDR-3164 PO; -HYDR-971 PO; -OXYC-323 PO; +OXYC1TAB15 PO; -PROM12.56 PO; +PROM12.58 PO
[2018-11-29] MEDS ORDERED: IV NORMAL SALINE 1000ML BAG 1,000 ML IV SCH (12:32)
[2018-11-29] MEDS ORDERED: ONDANSETRON PF 4 MG/2 ML VIAL. IV ONE ×2 (12:45→13:45)
[2018-11-29 12:46] LABS: BASO % 1 % (0-3); EOS % 0 % (0-3); HEMATOCRIT 45.7 % (36.0-47.0); HEMOGLOBIN 15.3 g/dL (12.0-15.5); LYMPH # 1.8 x10^3/uL (1.0-4.8); LYMPH % 21 % (24-48); MEAN CORPUSCULAR HEMOGLOBIN 31 pg (25-35); MEAN CORPUSCULAR HGB CONC 34 g/dL (31-37); MEAN CORPUSCULAR VOLUME 94 fL (79-100); MONO # 0.9 x10^3/uL (0.0-1.1); MONO % 10 % (0-9); NEUT # 6.1 x10^3uL (1.8-7.7); NEUT % 69 % (31-73); PLATELET COUNT 294 x10^3/uL (140-400); RED BLOOD COUNT 4.88 x10^6/uL (3.50-5.40); RED CELL DISTRIBUTION WIDTH 13.6 % (11.5-14.5); WHITE BLOOD COUNT 8.9 x10^3/uL (4.0-11.0)
[2018-11-29] MEDS: fentaNYL PF VIAL 100 MCG/2 ML VIAL IV PRN ×2 (12:46→13:38)
[2018-11-29 12:47] LABS: BILIRUBIN,URINE MODERATE (NEG); CLARITY,URINE CLEAR; COLOR,URINE AMBER; NITRITE,URINE NEGATIVE (NEG); PROTEIN,URINE 100 mg/dL (NEG-TRACE)
[2018-11-29 13:00] LABS: CALCIUM 9.7 mg/dL (8.5-10.1); GFR 78.8; POTASSIUM 3.5 mmol/L (3.5-5.1)
[2018-11-29 13:06] LABS: SQUAMOUS EPITHELIAL CELL,UR MANY /LPF
[2018-11-29 13:07] LABS: ALBUMIN 4.5 g/dL (3.4-5.0); ALBUMIN/GLOBULIN RATIO 1.1 (1.0-1.7); TOTAL BILIRUBIN 0.7 mg/dL (0.2-1.0); TOTAL PROTEIN 8.7 g/dL (6.4-8.2)
[2018-11-29 13:08] LABS: BACTERIA,URINE FEW /HPF (0-FEW); RBC,URINE OCC /HPF (0-2)
[2018-11-29 13:59] VITALS: BP 157/84
[2018-11-29] MEDS ORDERED: IOHEXOL 300 MG/ML 100ML VIAL. IV ONE (14:00)
[2018-11-29] MEDS ORDERED: CONTRAST GIVEN. MC PRN (14:15)
--- NOTE | 2018-11-29 14:46 | RAD ---
CT scan abdomen and pelvis with contrast 11/29/2018 CLINICAL HISTORY: Abdominal pain for the last 3 days. TECHNIQUE: After the intravenous administration of 75 cc of Omnipaque 300, contiguous, 5 mm axial sections were obtained through abdomen and pelvis. One or more of the following individualized dose reduction techniques were utilized for this study: 1. Automated exposure control. 2. Adjustment of the mA and/or kV according to patient size. 3. Use of iterative reconstruction technique. FINDINGS: Comparison study is dated 07/07/2018. Images through the lung bases are within normal limits. The spleen, pancreas, adrenal glands and kidneys are within normal limits. Small low-attenuation lesions are seen involving the liver which measure 5 to 6 mm in size. They are consistent with hepatic cysts. They are unchanged. Atherosclerotic calcification of the abdominal aorta is seen. The abdominal aorta tapers normally. Surgical clips are seen within the gallbladder fossa consistent with a cholecystectomy. No free fluid or free air is seen within the abdomen. There is no evidence of bowel obstruction. Images through the pelvis demonstrate the urinary bladder to be slightly contracted. No adnexal mass is seen. No free fluid is noted. Minimal S-shaped curvature of the thoracolumbar spine is seen. IMPRESSION: No acute abnormality is seen. Electronically signed by: Meek Watts MD (11/29/2018 2:43 PM) [id number]
--- NOTE | 2018-11-29 14:56 | PHYS DOC ---
Past Medical History Past Medical History: Asthma, IBS, Other Additional Past Medical Histor: chronic abd pain Past Surgical History: Cholecystectomy Alcohol Use: Occasionally Drug Use: Marijuana Adult General Chief Complaint Chief Complaint: NAUSEA/VOMITING/DIARRHA HPI HPI Patient is a 28-year-old female who presents with complaint of abdominal cramping with nausea and vomiting that started on Tuesday. Patient states that she has not been able to keep anything down since that time. She states that her last bowel movement was during the weekend. She states that initially she was passing gas but has not been passing gas for the last few days. She states that currently the pain is about a 6 out of 10 but states that at its worse pain is an 8-9 out of 10. She states that she takes dicyclomine so is not sure if that is why she is not been having a bowel movement. She also states that she has Zofran for nausea but that has not been helping. Review of Systems Review of Systems Constitutional: Denies fever or chills [] Respiratory: Denies cough or shortness of breath [] Cardiovascular: No additional information not addressed in HPI [] GI: Wat[place] of abdominal cramping with nausea and vomiting. Denies diarrhea. Complains of constipation. [] : Denies dysuria or hematuria [] Musculoskeletal: Denies back pain or joint pain [] All other systems were reviewed and found to be within normal limits, except as documented in this note. Current Medications Current Medications Current Medications Medications (Trade) Dose Ordered Sig/Parveen Start Time Stop Time Status Last Admin Dose Admin Fentanyl Citrate (Fentanyl 2ml Vial) 25 mcg PRN Q15MIN PRN 11/29/18 12:45 11/30/18 12:44 11/29/18 13:38 25 MCG Info (CONTRAST GIVEN -- Rx MONITORING) 1 each PRN DAILY PRN 11/29/18 14:15 12/01/18 14:14 Iohexol (Omnipaque 300 Mg/ml) 75 ml 1X ONCE 11/29/18 14:00 11/29/18 14:03 DC 11/29/18 14:11 75 ML Metoclopramide HCl (Reglan Vial) 10 mg 1X ONCE 11/29/18 15:45 11/29/18 15:46 DC 11/29/18 15:36 10 MG Ondansetron HCl (Zofran) 4 mg 1X ONCE 11/29/18 13:45 11/29/18 13:46 DC 11/29/18 13:38 4 MG Sodium Chloride 1,000 ml @ 1,000 mls/hr Q1H 11/29/18 12:32 11/29/18 13:31 DC 11/29/18 12:46 1,000 MLS/HR Allergies Allergies Allergies Coded Allergies Type Severity Reaction Last Updated Verified Latex, Natural Rubber Allergy Intermediate 05/13/17 Yes morphine Allergy Intermediate 05/13/17 Yes Physical Exam Physical Exam Constitutional: Well developed, well nourished, no acute distress, non-toxic appearance. [] HENT: Normocephalic, atraumatic, bilateral external ears normal, oropharynx moist, no oral exudates, nose normal. [] Eyes: PERRLA, EOMI, conjunctiva normal, no discharge. [] Neck: Normal range of motion, no tenderness, supple, no stridor. [] Cardiovascular: Regular rate and rhythm[] Lungs & Thorax: Bilateral breath sounds clear to auscultation [] Abdomen: Bowel sounds normal, soft, with diffuse tenderness. [] Skin: Warm, dry, no erythema, no rash. [] Extremities: No tenderness, no cyanosis, no clubbing, ROM intact, no edema. [] Neurologic: Alert and oriented X 3, no focal deficits noted. [] Current Patient Data Vital Signs Vital Signs Date Time Temp Pulse Resp B/P (MAP) Pulse Ox O2 Delivery O2 Flow Rate FiO2 11/29/18 13:59 54 157/84 (108) 99 Room Air 11/29/18 12:25 98.5 18 98.5 Lab Values Laboratory Tests Test 11/29/18 12:24 11/29/18 12:26 11/29/18 12:35 Urine Collection Type Unknown Urine Color [place] Urine Clarity Clear Urine pH 6.0 Urine Specific [place] >=1.030 Urine Protein 100 mg/dL (NEG-TRACE) Urine Glucose (UA) Negative mg/dL (NEG) Urine Ketones (Stick) 40 mg/dL (NEG) Urine Blood Negative (NEG) Urine Nitrite Negative (NEG) Urine Bilirubin Moderate (NEG) Urine Urobilinogen Dipstick 1.0 mg/dL (0.2 mg/dL) Urine Leukocyte Esterase Negative (NEG) Urine RBC Occ /HPF (0-2) Urine WBC 1-4 /HPF (0-4) Urine Squamous Epithelial Cells Many /LPF Urine Bacteria Few /HPF (0-FEW) Urine Mucus Marked /LPF POC Urine HCG, Qualitative Hcg negative (Negative) White Blood Count 8.9 x10^3/uL (4.0-11.0) Red Blood Count 4.88 x10^6/uL (3.50-5.40) Hemoglobin 15.3 g/dL (12.0-15.5) Hematocrit 45.7 % (36.0-47.0) Mean Corpuscular Volume 94 fL (79-100) Mean Corpuscular Hemoglobin 31 pg (25-35) Mean Corpuscular Hemoglobin Concent 34 g/dL (31-37) Red Cell Distribution Width 13.6 % (11.5-14.5) Platelet Count 294 x10^3/uL (140-400) Neutrophils (%) (Auto) 69 % (31-73) Lymphocytes (%) (Auto) 21 % (24-48) L Monocytes (%) (Auto) 10 % (0-9) H Eosinophils (%) (Auto) 0 % (0-3) Basophils (%) (Auto) 1 % (0-3) Neutrophils # (Auto) 6.1 x10^3uL (1.8-7.7) Lymphocytes # (Auto) 1.8 x10^3/uL (1.0-4.8) Monocytes # (Auto) 0.9 x10^3/uL (0.0-1.1) Eosinophils # (Auto) 0.0 x10^3/uL (0.0-0.7) Basophils # (Auto) 0.0 x10^3/uL (0.0-0.2) Sodium Level 137 mmol/L (136-145) Potassium Level 3.5 mmol/L (3.5-5.1) Chloride Level 96 mmol/L (98-107) L Carbon Dioxide Level 27 mmol/L (21-32) Anion Gap 14 (6-14) Blood Urea Nitrogen 17 mg/dL (7-20) Creatinine 1.0 mg/dL (0.6-1.0) Estimated GFR (Cockcroft-Gault) 78.8 BUN/Creatinine Ratio 17 (6-20) Glucose Level 106 mg/dL (70-99) H Calcium Level 9.7 mg/dL (8.5-10.1) Total Bilirubin 0.7 mg/dL (0.2-1.0) Aspartate Amino Transferase (AST) 28 U/L (15-37) Alanine Aminotransferase (ALT) 37 U/L (14-59) Alkaline Phosphatase 71 U/L (46-116) Total Protein 8.7 g/dL (6.4-8.2) H Albumin 4.5 g/dL (3.4-5.0) Albumin/Globulin Ratio 1.1 (1.0-1.7) Lipase 154 U/L (73-393) Laboratory Tests 11/29/18 12:35 Laboratory Tests 11/29/18 12:35 EKG EKG [] Radiology/Procedures Radiology/Procedures [] Course & Med Decision Making Course & Med Decision Making Pertinent Labs and Imaging studies reviewed. (See chart for details) [] Dragon Disclaimer Dragon Disclaimer This electronic medical record was generated, in whole or in part, using a voice recognition dictation system. Departure Departure Impression: Primary Impression: Abdominal pain Additional Impression: Nausea & vomiting Disposition: 01 HOME, SELF-CARE Condition: STABLE Referrals: KAVITA VÁSQUEZ MD (PCP) Patient Instructions: Abdominal Pain, Nausea and Vomiting Scripts Metoclopramide Hcl (REGLAN) 10 Mg Tablet 10 MG PO QIDACHS, #20 TAB 0 Refills Prov: RAHEEM ALFREDO Jr. DO 11/29/18 Problem Qualifiers Primary Impression: Abdominal pain Abdominal location: generalized Qualified Codes: R10.84 - Generalized abdominal pain Additional Impression: Nausea & vomiting Vomiting type: unspecified Vomiting Intractability: unspecified Qualified Codes: R11.2 - Nausea with vomiting, unspecified RAHEEM ALFREDO Jr. DO Nov 29, 2018 14:56
[2018-11-29] MEDS ORDERED: METOCLOPRAMIDE HCL 10 MG/2 ML VIAL. IV ONE (15:45)
[2018-11-29] MEDS ORDERED: METO10TA81 PO (16:13)
== END 2018-11-29 16:20 | disposition home or self-care (01) ==
LOC: ER 12:15
DX: R11.2 Nausea with vomiting, unspecified (principal); R10.84 Generalized abdominal pain; J45.909 Unspecified asthma, uncomplicated; G89.29 Other chronic pain; Z90.49 Acquired absence of other specified parts of digestive tract; Z88.5 Allergy status to narcotic agent; Z91.040 Latex allergy status
CPT/HCPCS: 36415; 74177; 80053; 81001; 81025; 83690; 85025; 96361; 96374; 96375; 96376; 99284; J2405; J2765; J3010; J7030; Q9967

== ENCOUNTER 2019-01-17 17:27 | Emergency (ER) | payer SELFPAY ==
[~2019-01-17] VITALS: Ht 160 cm; Wt 49.9 kg
--- NOTE | 2019-01-17 17:59 | PHYS DOC ---
Past Medical History Past Medical History: Asthma, IBS, Other Additional Past Medical Histor: chronic abd pain Past Surgical History: Cholecystectomy Alcohol Use: Occasionally Drug Use: Marijuana Adult General Chief Complaint Chief Complaint: NAUSEA/VOMITING/DIARRHA HPI HPI Patient is a 28 year old female with a history of marijuana-induced cyclic vomiting who presents to the ED today complaining of nausea with vomiting and 8 out of 10 generalized abdominal pain that began last night. Patient states she has been using marijuana. Patient denies any hematemesis or melena. Denies any diarrhea. She states she recently got medical insurance and will try and follow- up with the GI specialist. Review of Systems Review of Systems Constitutional: Denies fever or chills [] Eyes: Denies change in visual acuity, redness, or eye pain [] HENT: Denies nasal congestion or sore throat [] Respiratory: Denies cough or shortness of breath [] Cardiovascular: No additional information not addressed in HPI [] GI: Reports abdominal pain, nausea vomiting, denies diarrhea : Denies dysuria or hematuria [] Musculoskeletal: Denies back pain or joint pain [] Integument: Denies rash or skin lesions [] Neurologic: Denies headache, focal weakness or sensory changes [] All other systems were reviewed and found to be within normal limits, except as documented in this note. Current Medications Current Medications Current Medications Medications (Trade) Dose Ordered Sig/Parveen Start Time Stop Time Status Last Admin Dose Admin Haloperidol Lactate (Haldol Inj) 5 mg 1X ONCE 01/17/19 18:00 01/17/19 18:01 DC 01/17/19 18:21 5 MG Ondansetron HCl (Zofran) 4 mg 1X ONCE 01/17/19 18:00 01/17/19 18:01 DC 01/17/19 18:19 4 MG Prochlorperazine Edisylate (Compazine) 10 mg 1X ONCE 01/17/19 19:00 01/17/19 19:01 DC 01/17/19 19:05 10 MG Sodium Chloride 1,000 ml @ 1,000 mls/hr 1X ONCE 01/17/19 19:00 01/17/19 19:59 01/17/19 18:52 1,000 MLS/HR Sodium Chloride (Normal Saline Flush) 10 ml QSHIFT PRN 01/17/19 18:00 01/17/19 18:22 10 ML Allergies Allergies Allergies Coded Allergies Type Severity Reaction Last Updated Verified Latex, Natural Rubber Allergy Intermediate 05/13/17 Yes morphine Allergy Intermediate 05/13/17 Yes Physical Exam Physical Exam Constitutional: Well developed, well nourished, no acute distress, non-toxic appearance. [] HENT: Normocephalic, atraumatic, bilateral external ears normal, oropharynx moist, no oral exudates, nose normal. [] Eyes: PERRLA, EOMI, conjunctiva normal, no discharge. [] Neck: Normal range of motion, no tenderness, supple, no stridor. [] Cardiovascular:Heart rate regular rhythm, no murmur [] Lungs & Thorax: Bilateral breath sounds clear to auscultation [] Abdomen: Patient arrives in the ED vomiting. Bowel sounds normal, soft, no tenderness, no masses, no pulsatile masses. [] Skin: Warm, dry, no erythema, no rash. [] Back: No tenderness, no CVA tenderness. [] Extremities: No tenderness, no cyanosis, no clubbing, ROM intact, no edema. [] Neurologic: Alert and oriented X 3, normal motor function, normal sensory function, no focal deficits noted. [] Psychologic: Affect normal, judgement normal, mood normal. [] Current Patient Data Vital Signs Vital Signs Date Time Temp Pulse Resp B/P (MAP) Pulse Ox O2 Delivery O2 Flow Rate FiO2 01/17/19 19:07 69 20 117/69 (85) 99 Room Air 01/17/19 17:32 99.1 99.1 Lab Values Laboratory Tests Test 01/17/19 17:32 01/17/19 17:42 01/17/19 18:14 Urine Collection Type Unknown Urine Color [place] Urine Clarity Clear Urine pH 5.5 Urine Specific [place] >=1.030 Urine Protein 30 mg/dL (NEG-TRACE) Urine Glucose (UA) Negative mg/dL (NEG) Urine Ketones (Stick) 40 mg/dL (NEG) Urine Blood Negative (NEG) Urine Nitrite Negative (NEG) Urine Bilirubin Small (NEG) Urine Urobilinogen Dipstick 0.2 mg/dL (0.2 mg/dL) Urine Leukocyte Esterase Negative (NEG) Urine RBC 0 /HPF (0-2) Urine WBC 1-4 /HPF (0-4) Urine Squamous Epithelial Cells Mod /LPF Urine Bacteria 0 /HPF (0-FEW) Urine Mucus Marked /LPF Urine Opiates Screen Neg (NEG) Urine Methadone Screen Neg (NEG) Urine Barbiturates Neg (NEG) Urine Phencyclidine Screen Neg (NEG) Urine Amphetamine/Methamphetamine Neg (NEG) Urine Benzodiazepines Screen Neg (NEG) Urine Cocaine Screen Neg (NEG) Urine Cannabinoids Screen Pos (NEG) Urine Ethyl Alcohol Neg (NEG) POC Urine HCG, Qualitative Hcg negative (Negative) White Blood Count 8.4 x10^3/uL (4.0-11.0) Red Blood Count 4.70 x10^6/uL (3.50-5.40) Hemoglobin 14.9 g/dL (12.0-15.5) Hematocrit 44.5 % (36.0-47.0) Mean Corpuscular Volume 95 fL (79-100) Mean Corpuscular Hemoglobin 32 pg (25-35) Mean Corpuscular Hemoglobin Concent 34 g/dL (31-37) Red Cell Distribution Width 14.8 % (11.5-14.5) H Platelet Count 337 x10^3/uL (140-400) Neutrophils (%) (Auto) 87 % (31-73) H Lymphocytes (%) (Auto) 8 % (24-48) L Monocytes (%) (Auto) 5 % (0-9) Eosinophils (%) (Auto) 0 % (0-3) Basophils (%) (Auto) 0 % (0-3) Neutrophils # (Auto) 7.3 x10^3uL (1.8-7.7) Lymphocytes # (Auto) 0.7 x10^3/uL (1.0-4.8) L Monocytes # (Auto) 0.4 x10^3/uL (0.0-1.1) Eosinophils # (Auto) 0.0 x10^3/uL (0.0-0.7) Basophils # (Auto) 0.0 x10^3/uL (0.0-0.2) Segmented Neutrophils % 83 % (35-66) H Band Neutrophils % 3 % (0-9) Lymphocytes % 10 % (24-48) L Monocytes % 4 % (0-10) Platelet Estimate Adequate (ADEQUATE) Sodium Level 141 mmol/L (136-145) Potassium Level 4.2 mmol/L (3.5-5.1) Chloride Level 100 mmol/L (98-107) Carbon Dioxide Level 24 mmol/L (21-32) Anion Gap 17 (6-14) H Blood Urea Nitrogen 12 mg/dL (7-20) Creatinine 0.8 mg/dL (0.6-1.0) Estimated GFR (Cockcroft-Gault) 101.9 BUN/Creatinine Ratio 15 (6-20) Glucose Level 102 mg/dL (70-99) H Calcium Level 10.3 mg/dL (8.5-10.1) H Total Bilirubin 0.7 mg/dL (0.2-1.0) Aspartate Amino Transferase (AST) 26 U/L (15-37) Alanine Aminotransferase (ALT) 35 U/L (14-59) Alkaline Phosphatase 65 U/L (46-116) Total Protein 8.2 g/dL (6.4-8.2) Albumin 4.6 g/dL (3.4-5.0) Albumin/Globulin Ratio 1.3 (1.0-1.7) Lipase 30 U/L (73-393) L Ethyl Alcohol Level < 10 mg/dL (0-10) Laboratory Tests 01/17/19 18:14 Laboratory Tests 01/17/19 18:14 EKG EKG [] Radiology/Procedures Radiology/Procedures [] Course & Med Decision Making Course & Med Decision Making Pertinent Labs and Imaging studies reviewed. (See chart for details) This is a 28-year-old female patient with history of migraine just cyclic vomiting presenting to the ED today with nausea vomiting and generalized abdominal pain since yesterday. Patient's labs are negative for any acute findings, noted for marijuana use. Patient advised to stop using marijuana. Given IV fluids, Haldol, Zofran and Compazine. Symptoms are gone. Discharged to home. She states she has insurance and will follow up with GI. Marcy Disclaimer Josephon Disclaimer This electronic medical record was generated, in whole or in part, using a voice recognition dictation system. Departure Departure Impression: Primary Impression: Cyclic vomiting syndrome Additional Impression: Cannabis abuse Disposition: HOME, SELF-CARE Condition: STABLE Referrals: KAVITA VÁSQUEZ MD (PCP) REJI PRABHAKAR MD follow up as soon as you can Patient Instructions: Cyclic Vomiting Syndrome, Marijuana Abuse-Brief Additional Instructions: You were evaluated in the emergency room for cyclic vomiting, this is typically caused by marijuana, consider not using this drug. Follow-up with the GI doctor provided as soon as you can. Scripts Ondansetron (ONDANSETRON ODT) 4 Mg Tab.rapdis 1 TAB PO PRN Q6-8HRS, #16 TAB Prov: FRITZ BRAN JUAN 01/17/19 Problem Qualifiers Primary Impression: Cyclic vomiting syndrome Vomiting Intractability: intractable Nausea presence: with nausea Qualified Codes: G43.A1 - Cyclical vomiting, intractable SHANTFRITZ JUAN Jan 17, 2019 17:59
[2019-01-17] MEDS ORDERED: ONDANSETRON PF 4 MG/2 ML VIAL. IV ONE (18:00)
[2019-01-17] MEDS ORDERED: 0.9 % SODIUM CHLORIDE 10 ML DISP.SYRIN. IV PRN (18:00)
[2019-01-17] MEDS ORDERED: HALOPERIDOL LACTATE 5 MG/ML VIAL. IVP ONE (18:00)
[2019-01-17 18:24] LABS: BASO % 0 % (0-3); EOS % 0 % (0-3); HEMATOCRIT 44.5 % (36.0-47.0); HEMOGLOBIN 14.9 g/dL (12.0-15.5); LYMPH # 0.7 x10^3/uL (1.0-4.8); LYMPH % 8 % (24-48); MEAN CORPUSCULAR HEMOGLOBIN 32 pg (25-35); MEAN CORPUSCULAR HGB CONC 34 g/dL (31-37); MEAN CORPUSCULAR VOLUME 95 fL (79-100); MONO # 0.4 x10^3/uL (0.0-1.1); MONO % 5 % (0-9); NEUT # 7.3 x10^3uL (1.8-7.7); NEUT % 87 % (31-73); PLATELET COUNT 337 x10^3/uL (140-400); RED CELL DISTRIBUTION WIDTH 14.8 % (11.5-14.5); WHITE BLOOD COUNT 8.4 x10^3/uL (4.0-11.0)
[2019-01-17 18:26] LABS: BILIRUBIN,URINE SMALL (NEG); CLARITY,URINE CLEAR; COLOR,URINE AMBER; NITRITE,URINE NEGATIVE (NEG); PH,URINE 5.5; PROTEIN,URINE 30 mg/dL (NEG-TRACE); UROBILINOGEN,URINE 0.2 mg/dL (0.2 mg/dL)
[2019-01-17 18:33] LABS: CALCIUM 10.3 mg/dL (8.5-10.1); CREATININE 0.8 mg/dL (0.6-1.0); GFR 101.9; POTASSIUM 4.2 mmol/L (3.5-5.1)
[2019-01-17 18:34] LABS: BARBITURATES NEG (NEG); BENZODIAZEPINES NEG (NEG); CANNABINOIDS POS (NEG); COCAINE NEG (NEG); METHADONE NEG (NEG); OPIATES NEG (NEG); PHENCYCLIDINE NEG (NEG)
[2019-01-17 18:36] LABS: AMPHETAMINE/METHAMPHETAMINE NEG (NEG)
[2019-01-17 18:38] LABS: ALBUMIN 4.6 g/dL (3.4-5.0); ALBUMIN/GLOBULIN RATIO 1.3 (1.0-1.7); TOTAL BILIRUBIN 0.7 mg/dL (0.2-1.0); TOTAL PROTEIN 8.2 g/dL (6.4-8.2)
[2019-01-17 18:44] LABS: SQUAMOUS EPITHELIAL CELL,UR MOD /LPF
[2019-01-17 18:45] LABS: BACTERIA,URINE 0 /HPF (0-FEW); RBC,URINE 0 /HPF (0-2)
[2019-01-17] MEDS ORDERED: PROCHLORPERAZINE 10 MG/2 ML VIAL. IV ONE (19:00)
[2019-01-17] MEDS ORDERED: IV NORMAL SALINE 1000ML BAG 1,000 ML IV ONE (19:00)
[2019-01-17 19:24] LABS: % BANDS 3 % (0-9); % LYMPHS 10 % (24-48); % MONOS 4 % (0-10); % SEGS 83 % (35-66); PLT ESTIMATE ADEQUATE (ADEQUATE)
[2019-01-17 19:35] VITALS: BP 95/50
[2019-01-17] MEDS ORDERED: ONDA4TAB12 PO (19:47)
== END 2019-01-17 20:02 | disposition home or self-care (01) ==
LOC: ER 17:27
DX: G43.A1 Cyclical vomiting, in migraine, intractable (principal); F12.20 Cannabis dependence, uncomplicated; J45.909 Unspecified asthma, uncomplicated; G89.29 Other chronic pain; Z90.49 Acquired absence of other specified parts of digestive tract; Z88.5 Allergy status to narcotic agent; Z91.040 Latex allergy status
CPT/HCPCS: 36415; 80053; 80307; 81001; 81025; 83690; 85007; 85025; 96361; 96374; 96375; 99283; G0480; J0780; J1630; J2405; J7030

== ENCOUNTER 2019-01-18 19:06 | Inpatient (IN) | payer SELFPAY ==
[~2019-01-18] VITALS: Ht 160 cm; Wt 49.0 kg
[~2019-01-18 19:06] MED LIST changes: +ONDA4TAB12 PO
--- NOTE | 2019-01-18 19:44 | PHYS DOC ---
Past Medical History Past Medical History: Asthma, IBS, Other Additional Past Medical Histor: chronic abd pain,cyclic vomitin syndrome Past Surgical History: Cholecystectomy Alcohol Use: Occasionally Drug Use: Marijuana Adult General Chief Complaint Chief Complaint: ABDOMINAL PAIN HPI HPI Patient is a 28 year old female with a history of marijuana and acyclic vomiting presents to the ED complaining of vomiting over 6 times a day. Patient was seen in ED yesterday and discharge with Cassie. States she felt better when she left the ED yesterday but continued to have vomiting today. Patient states that she has not smoked marijuana in 2 days. States that she does use CBD oil daily though. States her vomit is yellow. States she is unable to keep anything down. Describes the pain as crampy. Rates the pain as 7 out of 10. Denies chest pain, shortness of breath, fever, hemoptysis, blood in stool, diarrhea, headache , neck pain, back pain or syncope. Review of Systems Review of Systems Constitutional: Denies fever or chills [] Eyes: Denies change in visual acuity, redness, or eye pain [] HENT: Denies nasal congestion or sore throat [] Respiratory: Denies cough or shortness of breath [] Cardiovascular: No additional information not addressed in HPI [] GI: Complains of nausea and vomiting. Denies abdominal pain, bloody stools or diarrhea [] : Denies dysuria or hematuria [] Musculoskeletal: Denies back pain or joint pain [] Integument: Denies rash or skin lesions [] Neurologic: Denies headache, focal weakness or sensory changes [] Endocrine: Denies polyuria or polydipsia [] All other systems were reviewed and found to be within normal limits, except as documented in this note. Current Medications Current Medications Current Medications Medications (Trade) Dose Ordered Sig/Parveen Start Time Stop Time Status Last Admin Dose Admin Diphenhydramine HCl (Benadryl) 50 mg 1X ONCE 01/18/19 20:00 01/18/19 20:01 DC 01/18/19 20:49 50 MG Ketorolac Tromethamine (Toradol 30mg Vial) 30 mg 1X ONCE 01/18/19 22:00 01/18/19 22:01 DC 01/18/19 21:53 30 MG Metoclopramide HCl (Reglan Vial) 10 mg 1X ONCE 01/18/19 20:00 01/18/19 20:01 DC 01/18/19 20:50 10 MG Prochlorperazine Edisylate (Compazine) 10 mg 1X ONCE 01/18/19 22:00 01/18/19 22:01 DC 01/18/19 21:54 10 MG Sodium Chloride 1,000 ml @ 1,000 mls/hr 1X ONCE 01/18/19 20:00 01/18/19 20:59 DC 01/18/19 20:46 1,000 MLS/HR Allergies Allergies Allergies Coded Allergies Type Severity Reaction Last Updated Verified Latex, Natural Rubber Allergy Intermediate 05/13/17 Yes morphine Allergy Intermediate 05/13/17 Yes Physical Exam Physical Exam Constitutional: Well developed, well nourished, no acute distress, non-toxic appearance. [] HENT: Normocephalic, atraumatic, airway patent. Eyes: PERRLA, EOMI, conjunctiva normal, no discharge. [] Neck: Normal range of motion, no tenderness, supple, no stridor. [] Cardiovascular:Heart rate regular rhythm, no murmur [] Lungs & Thorax: Bilateral breath sounds clear to auscultation [] Abdomen: Bowel sounds normal, soft, no tenderness, no masses, no pulsatile masses. [] Skin: Warm, dry, no erythema, no rash. [] Back: No tenderness, no CVA tenderness. [] Extremities: No tenderness, no cyanosis, no clubbing, ROM intact, no edema. [] Neurologic: Alert and oriented X 3, normal motor function, normal sensory function, no focal deficits noted. [] Psychologic: Affect normal, judgement normal, mood normal. [] Current Patient Data Vital Signs Vital Signs Date Time Temp Pulse Resp B/P (MAP) Pulse Ox O2 Delivery O2 Flow Rate FiO2 01/18/19 19:18 98.4 56 18 174/80 (111) 99 Room Air 98.4 Lab Values Laboratory Tests Test 01/18/19 20:40 01/18/19 21:30 White Blood Count 5.7 x10^3/uL (4.0-11.0) Red Blood Count 4.48 x10^6/uL (3.50-5.40) Hemoglobin 14.3 g/dL (12.0-15.5) Hematocrit 42.6 % (36.0-47.0) Mean Corpuscular Volume 95 fL (79-100) Mean Corpuscular Hemoglobin 32 pg (25-35) Mean Corpuscular Hemoglobin Concent 34 g/dL (31-37) Red Cell Distribution Width 14.8 % (11.5-14.5) H Platelet Count 294 x10^3/uL (140-400) Neutrophils (%) (Auto) 73 % (31-73) Lymphocytes (%) (Auto) 19 % (24-48) L Monocytes (%) (Auto) 8 % (0-9) Eosinophils (%) (Auto) 0 % (0-3) Basophils (%) (Auto) 0 % (0-3) Neutrophils # (Auto) 4.2 x10^3uL (1.8-7.7) Lymphocytes # (Auto) 1.1 x10^3/uL (1.0-4.8) Monocytes # (Auto) 0.5 x10^3/uL (0.0-1.1) Eosinophils # (Auto) 0.0 x10^3/uL (0.0-0.7) Basophils # (Auto) 0.0 x10^3/uL (0.0-0.2) Sodium Level 138 mmol/L (136-145) Potassium Level 3.5 mmol/L (3.5-5.1) Chloride Level 100 mmol/L (98-107) Carbon Dioxide Level 26 mmol/L (21-32) Anion Gap 12 (6-14) Blood Urea Nitrogen 12 mg/dL (7-20) Creatinine 0.7 mg/dL (0.6-1.0) Estimated GFR (Cockcroft-Gault) 118.9 BUN/Creatinine Ratio 17 (6-20) Glucose Level 114 mg/dL (70-99) H Calcium Level 9.5 mg/dL (8.5-10.1) Total Bilirubin 0.7 mg/dL (0.2-1.0) Aspartate Amino Transferase (AST) 24 U/L (15-37) Alanine Aminotransferase (ALT) 32 U/L (14-59) Alkaline Phosphatase 58 U/L (46-116) Total Protein 7.9 g/dL (6.4-8.2) Albumin 4.3 g/dL (3.4-5.0) Albumin/Globulin Ratio 1.2 (1.0-1.7) Urine Opiates Screen Neg (NEG) Urine Methadone Screen Neg (NEG) Urine Barbiturates Neg (NEG) Urine Phencyclidine Screen Neg (NEG) Urine Amphetamine/Methamphetamine Neg (NEG) Urine Benzodiazepines Screen Neg (NEG) Urine Cocaine Screen Neg (NEG) Urine Cannabinoids Screen Pos (NEG) Urine Ethyl Alcohol Neg (NEG) Laboratory Tests 01/18/19 20:40 Laboratory Tests 01/18/19 20:40 EKG EKG [] Radiology/Procedures Radiology/Procedures [] Course & Med Decision Making Course & Med Decision Making Pertinent Labs and Imaging studies reviewed. (See chart for details) []Discussed lab findings with patient. She is still having vomiting. Will admit for intractable vomiting/marijuana-induced cyclic vomiting. Discussed case with Dr. Donnelly. Agrees to admission and further management patient. Patient stable for admission. Dragon Disclaimer Dragon Disclaimer This electronic medical record was generated, in whole or in part, using a voice recognition dictation system. Departure Departure Impression: Primary Impression: Cannabinoid hyperemesis syndrome Additional Impression: Intractable nausea and vomiting Disposition: ADMITTED INPATIENT Admitting Physician: Radu Canas Condition: STABLE Referrals: KAVITA VÁSQUEZ MD (PCP) Problem Qualifiers KRYSTYNA CALVIN Jan 18, 2019 19:44
[2019-01-18] MEDS ORDERED: METOCLOPRAMIDE HCL 10 MG/2 ML VIAL. IV ONE (20:00)
[2019-01-18] MEDS ORDERED: IV NORMAL SALINE 1000ML BAG 1,000 ML IV ONE (20:00)
[2019-01-18] MEDS ORDERED: diphenhydrAMINE 50 MG/ML VIAL IVP ONE (20:00)
[2019-01-18 21:02] LABS: BASO % 0 % (0-3); EOS % 0 % (0-3); HEMATOCRIT 42.6 % (36.0-47.0); HEMOGLOBIN 14.3 g/dL (12.0-15.5); LYMPH # 1.1 x10^3/uL (1.0-4.8); LYMPH % 19 % (24-48); MEAN CORPUSCULAR HEMOGLOBIN 32 pg (25-35); MEAN CORPUSCULAR HGB CONC 34 g/dL (31-37); MEAN CORPUSCULAR VOLUME 95 fL (79-100); MONO # 0.5 x10^3/uL (0.0-1.1); MONO % 8 % (0-9); NEUT # 4.2 x10^3uL (1.8-7.7); NEUT % 73 % (31-73); PLATELET COUNT 294 x10^3/uL (140-400); RED BLOOD COUNT 4.48 x10^6/uL (3.50-5.40); RED CELL DISTRIBUTION WIDTH 14.8 % (11.5-14.5); WHITE BLOOD COUNT 5.7 x10^3/uL (4.0-11.0)
[2019-01-18 21:11] LABS: CALCIUM 9.5 mg/dL (8.5-10.1); CREATININE 0.7 mg/dL (0.6-1.0); GFR 118.9; POTASSIUM 3.5 mmol/L (3.5-5.1)
[2019-01-18 21:17] LABS: ALBUMIN 4.3 g/dL (3.4-5.0); ALBUMIN/GLOBULIN RATIO 1.2 (1.0-1.7); TOTAL BILIRUBIN 0.7 mg/dL (0.2-1.0); TOTAL PROTEIN 7.9 g/dL (6.4-8.2)
[2019-01-18 21:45] LABS: BARBITURATES NEG (NEG); BENZODIAZEPINES NEG (NEG); CANNABINOIDS POS (NEG); COCAINE NEG (NEG); METHADONE NEG (NEG); OPIATES NEG (NEG); PHENCYCLIDINE NEG (NEG)
[2019-01-18 21:46] LABS: AMPHETAMINE/METHAMPHETAMINE NEG (NEG)
[2019-01-18] MEDS ORDERED: KETOROLAC 30 MG/ML VIAL. IV ONE (22:00)
[2019-01-18] MEDS ORDERED: PROCHLORPERAZINE 10 MG/2 ML VIAL. IV ONE (22:00)
[2019-01-18] MEDS ORDERED: ONDANSETRON PF 4 MG/2 ML VIAL. IV PRN (22:45)
[2019-01-18 23:45] VITALS: BP 143/82
--- NOTE | 2019-01-19 00:27 | NUR ---
The patient, ROSALINE KIMBLE, 28 y/o, F admitted by CHARLOTTE MOTA MD, was given written information regarding hospital policies, unit procedures and contact persons. Patient was offered to lock up her valuables with security but chose to keep them with her in her room. Patient is resting in bed with top side rails up and call light within reach. Will continue to monitor
[2019-01-19 03:00] VITALS: BP 141/61
[2019-01-19 04:22] LABS: BASO % 0 % (0-3); EOS % 0 % (0-3); HEMATOCRIT 37.4 % (36.0-47.0); HEMOGLOBIN 12.4 g/dL (12.0-15.5); LYMPH # 1.2 x10^3/uL (1.0-4.8); LYMPH % 19 % (24-48); MEAN CORPUSCULAR HEMOGLOBIN 32 pg (25-35); MEAN CORPUSCULAR HGB CONC 33 g/dL (31-37); MEAN CORPUSCULAR VOLUME 96 fL (79-100); MONO # 0.6 x10^3/uL (0.0-1.1); MONO % 10 % (0-9); NEUT # 4.5 x10^3uL (1.8-7.7); NEUT % 71 % (31-73); PLATELET COUNT 255 x10^3/uL (140-400); RED BLOOD COUNT 3.91 x10^6/uL (3.50-5.40); RED CELL DISTRIBUTION WIDTH 14.6 % (11.5-14.5); WHITE BLOOD COUNT 6.3 x10^3/uL (4.0-11.0)
[2019-01-19 04:37] LABS: ALBUMIN 3.6 g/dL (3.4-5.0); ALBUMIN/GLOBULIN RATIO 1.2 (1.0-1.7); CALCIUM 8.7 mg/dL (8.5-10.1); CREATININE 0.8 mg/dL (0.6-1.0); GFR 101.9; POTASSIUM 3.5 mmol/L (3.5-5.1); TOTAL BILIRUBIN 0.6 mg/dL (0.2-1.0); TOTAL PROTEIN 6.7 g/dL (6.4-8.2)
[2019-01-19] MEDS: ACETAMINOPHEN 325 MG TABLET. PO PRN ×2 (06:32→10:45)
[2019-01-19 07:00] VITALS: BP 130/70
[2019-01-19] MEDS ORDERED: PROMETHAZINE 12.5 MG TABLET. PO PRN (09:15)
[2019-01-19] MEDS ORDERED: METOCLOPRAMIDE 10 MG TABLET. PO PRN (09:15)
[2019-01-19] MEDS ORDERED: PROCHLORPERAZINE 10 MG/2 ML VIAL. IV PRN (09:15)
[2019-01-19] MEDS ORDERED: HYDROcodone/APAP 5/325MG 1 TAB TABLET PO PRN ×2 (09:15)
[2019-01-19] MEDS ORDERED: traMADol 50 MG TABLET PO PRN (09:15)
[2019-01-19] MEDS ORDERED: CALCIUM CARBONATE 500 MG TAB.CHEW PO PRN (09:15)
[2019-01-19] MEDS ORDERED: DICYCLOMINE HCL 10 MG CAPSULE PO PRN (09:15)
[2019-01-19] MEDS: DOCUSATE SODIUM 100 MG CAPSULE. PO SCH ×2 (10:45→21:00)
[2019-01-19] MEDS: ONDANSETRON PF 4 MG/2 ML VIAL. IV PRN ×2 (10:45→20:09)
[2019-01-19 11:00] VITALS: BP 107/69
--- NOTE | 2019-01-19 11:07 | PDOC1 ---
History and Physical Date of Admission Date of Admission DATE: 01/19/19 TIME: 11:03 Identification/Chief Complaint Chief Complaint Vomiting 6 episodes in a day Source Source: Caregiver, Chart review, Patient History of Present Illness History of Present Illness 28-year-old female with history of cyclic vomiting per chart, marijuana use also? Claims to me 6 episodes of vomiting yesterday. Much better now but still did not eat breakfast. Bucket at bedside she claims she cleaned the vomitus. Labs are normal, no electric abnormalities. CT done on November 2018 was normal. She did have a low EF of her gallbladder and that has been taken out. She wishes for some IV fluids I did talk to her about her observation status Agreeable to start diet today advance diet as tolerated and if better home tomorrow Past Medical History Cardiovascular: No pertinent hx Pulmonary: No pertinent hx GI: Other (cyclic vomiting syndrome) Heme/Onc: No pertinent hx Hepatobiliary: No pertinent hx Psych: Addictions, Bipolar, Other Rheumatologic: No pertinent hx Infectious disease: No pertinent hx ENT: No pertinent hx Past Surgical History Past Surgical History: Cholecystectomy Family History Family History: No Significant, Other Social History Smoke: No ALCOHOL: none Drugs: Marijuana Current Problem List Problem List Problems Medical Problems: (1) Cannabinoid hyperemesis syndrome Status: Acute (2) Intractable nausea and vomiting Status: Acute Current Medications Current Medications Current Medications Metoclopramide HCl (Reglan Vial) 10 mg 1X ONCE IV Last administered on at 20:50; Start 01/18/19 at 20:00; Stop 01/18/19 at 20:01; Status DC Diphenhydramine HCl (Benadryl) 50 mg 1X ONCE IVP Last administered on at 20:49; Start 01/18/19 at 20:00; Stop 01/18/19 at 20:01; Status DC Sodium Chloride 1,000 ml @ 1,000 mls/hr 1X ONCE IV Last administered on at 20:46; Start 01/18/19 at 20:00; Stop 01/18/19 at 20:59; Status DC Ketorolac Tromethamine (Toradol 30mg Vial) 30 mg 1X ONCE IV Last administered on 01/18/19at 21:53; Start 01/18/19 at 22:00; Stop 01/18/19 at 22:01; Status DC Prochlorperazine Edisylate (Compazine) 10 mg 1X ONCE IV Last administered on at 21:54; Start 01/18/19 at 22:00; Stop 01/18/19 at 22:01; Status DC Ondansetron HCl (Zofran) 4 mg PRN Q8HRS PRN IV NAUSEA/VOMITING 1ST CHOICE Last administered on 01/19/19at 02:17; Start 01/18/19 at 22:45; Stop 01/19/19 at 09:11 ; Status DC Acetaminophen (Tylenol) 650 mg PRN Q4HRS PRN PO FEVER Last administered on 01/19at 10:45; Start 01/18/19 at 22:45; Stop 01/19/19 at 22:44 Ondansetron HCl (Zofran) 4 mg PRN Q6HRS PRN IV NAUSEA/VOMITING 1ST CHOICE Last administered on 01/19/19at 10:45; Start 01/19/19 at 09:15 Calcium Carbonate/ Glycine (Tums) 500 mg PRN AFTMEALHC PRN PO INDIGESTION; Start 01/19/19 at 09:15 Pantoprazole Sodium (Protonix) 40 mg DAILYAC PO ; Start 01/20/19 at 11:30 Prochlorperazine Edisylate (Compazine) 10 mg PRN Q6HRS PRN IV NAUSEA/VOMITING; Start 01/19/19 at 09:15 Acetaminophen/ Hydrocodone Bitart (Lortab 5/325) 1 tab PRN Q4HRS PRN PO MODERATE PAIN; Start 01/19/19 at 09:15 Dicyclomine HCl (Bentyl) 10 mg PRN TID PRN PO abdominal cramping/pain; Start at 09:15 Docusate Sodium (Colace) 100 mg BID PO Last administered on 01/19/19at 10:45; Start 01/19/19 at 10:00 Acetaminophen/ Hydrocodone Bitart (Lortab 5/325) 1 tab PRN Q6HRS PRN PO PAIN; Start 01/19/19 at 09:15; Status UNV Metoclopramide HCl (Reglan) 10 mg PRN QID PRN PO NAUSEA/VOMITING; Start at 09:15 Promethazine HCl (Phenergan) 12.5 mg PRN TID PRN PO n/v; Start 01/19/19 at 09: 15 Tramadol HCl (Ultram) 50 mg PRN Q6HRS PRN PO MILD PAIN; Start 01/19/19 at 09:15 Active Scripts Active Ondansetron Odt (Ondansetron) 4 Mg Tab.rapdis 1 Tab PO PRN Q6-8HRS Reglan (Metoclopramide Hcl) 10 Mg Tablet 10 Mg PO QIDACHS Dicyclomine Hcl 10 Mg Capsule 1 Cap PO TID PRN Reglan (Metoclopramide Hcl) 10 Mg Tablet 10 Mg PO QIDACHS PRN Dicyclomine Hcl 20 Mg Tablet 1 Tab PO TID Zofran Odt (Ondansetron) 4 Mg Tab.rapdis 1 Tab SL Q8HRS Zofran Odt (Ondansetron) 4 Mg Tab.rapdis 1 Tab SL Q8HRS Tramadol Hcl 50 Mg Tablet 1 Tab PO PRN Q6HRS Zofran Odt (Ondansetron) 4 Mg Tab.rapdis 1 Tab SL Q8HRS [place] 5-325 Tablet (Acetaminophen/Hydrocodone Bitart) 1 Each Tablet 1 Tab PO PRN Q6HRS PRN Promethazine Hcl 12.5 Mg Tablet 1 Tab PO Q6-8HRS Zofran Odt (Ondansetron) 4 Mg Tab.rapdis 1 Tab SL Q8HRS Zofran Odt (Ondansetron) 4 Mg Tab.rapdis 1 Tab SL PRN Q8HRS PRN Hydrocodone-Apap 5-325 (Hydrocodone Bit/Acetaminophen) 1 Each Tablet 1 Tab PO PRN Q6HRS PRN Be careful as this medication may cause you to be drowsy or tired. Do not drive on this medication. Colace (Docusate Sodium) 100 Mg Capsule 100 Mg PO BID Oxycodone-Acetaminophen 5-325 (Oxycodone Hcl/Acetaminophen) 1 Each Tablet 1 Tab PO PRN Q4HRS PRN Promethazine Hcl 25 Mg Tablet 1 Tab PO PRN Q6HRS Zofran Odt (Ondansetron) 4 Mg Tab.rapdis 1 Tab SL Q8HRS Reported [bc implant] Allergies Allergies: Coded Allergies: Latex, Natural Rubber (Verified Allergy, Intermediate, 05/13/17) morphine (Verified Allergy, Intermediate, 05/13/17) ROS Review of System Asper history of present illness, the rest of ROS negative Physical Exam General: Alert, Oriented X3, Cooperative, No acute distress HEENT: Atraumatic, PERRLA, EOMI Lungs: Clear to auscultation, Normal air movement Heart: S1S2, RRR, no thrills, no rubs, no gallops, no murmurs Cardiovascular: S1, S2 Breasts: Normal, Rt breast nml w/o mass, Lt breast nml w/o mass, Nipples normal Abdomen: Normal bowel sounds, Soft, No tenderness, No hepatosplenomegaly, No masses Rectal Exam: not examined PELVIC: Nml ext genitalia Extremities: No clubbing, No cyanosis, No edema, Normal pulses, No tenderness/ swelling Skin: No rashes, No breakdown, No significant lesion Neuro: Normal gait, Normal speech, Strength at 5/5 X4 ext, Normal tone, Sensation intact, Cranial nerves 3-12 NL, Reflexes 2+ Psych/Mental Status: Mental status NL, Mood NL Vitals Vitals Vital Signs Date Time Temp Pulse Resp B/P (MAP) Pulse Ox O2 Delivery O2 Flow Rate FiO2 01/19/19 07:00 98.4 60 16 130/70 (90) 98 Room Air 98.4 Labs Labs Laboratory Tests Test 01/18/19 20:40 01/18/19 21:30 01/19/19 03:40 White Blood Count 5.7 x10^3/uL (4.0-11.0) 6.3 x10^3/uL (4.0-11.0) Red Blood Count 4.48 x10^6/uL (3.50-5.40) 3.91 x10^6/uL (3.50-5.40) Hemoglobin 14.3 g/dL (12.0-15.5) 12.4 g/dL (12.0-15.5) Hematocrit 42.6 % (36.0-47.0) 37.4 % (36.0-47.0) Mean Corpuscular Volume 95 fL (79-100) 96 fL (79-100) Mean Corpuscular Hemoglobin 32 pg (25-35) 32 pg (25-35) Mean Corpuscular Hemoglobin Concent 34 g/dL (31-37) 33 g/dL (31-37) Red Cell Distribution Width 14.8 % (11.5-14.5) 14.6 % (11.5-14.5) Platelet Count 294 x10^3/uL (140-400) 255 x10^3/uL (140-400) Neutrophils (%) (Auto) 73 % (31-73) 71 % (31-73) Lymphocytes (%) (Auto) 19 % (24-48) 19 % (24-48) Monocytes (%) (Auto) 8 % (0-9) 10 % (0-9) Eosinophils (%) (Auto) 0 % (0-3) 0 % (0-3) Basophils (%) (Auto) 0 % (0-3) 0 % (0-3) Neutrophils # (Auto) 4.2 x10^3uL (1.8-7.7) 4.5 x10^3uL (1.8-7.7) Lymphocytes # (Auto) 1.1 x10^3/uL (1.0-4.8) 1.2 x10^3/uL (1.0-4.8) Monocytes # (Auto) 0.5 x10^3/uL (0.0-1.1) 0.6 x10^3/uL (0.0-1.1) Eosinophils # (Auto) 0.0 x10^3/uL (0.0-0.7) 0.0 x10^3/uL (0.0-0.7) Basophils # (Auto) 0.0 x10^3/uL (0.0-0.2) 0.0 x10^3/uL (0.0-0.2) Sodium Level 138 mmol/L (136-145) 139 mmol/L (136-145) Potassium Level 3.5 mmol/L (3.5-5.1) 3.5 mmol/L (3.5-5.1) Chloride Level 100 mmol/L (98-107) 102 mmol/L (98-107) Carbon Dioxide Level 26 mmol/L (21-32) 24 mmol/L (21-32) Anion Gap 12 (6-14) 13 (6-14) Blood Urea Nitrogen 12 mg/dL (7-20) 12 mg/dL (7-20) Creatinine 0.7 mg/dL (0.6-1.0) 0.8 mg/dL (0.6-1.0) Estimated GFR (Cockcroft-Gault) 118.9 101.9 BUN/Creatinine Ratio 17 (6-20) 15 (6-20) Glucose Level 114 mg/dL (70-99) 105 mg/dL (70-99) Calcium Level 9.5 mg/dL (8.5-10.1) 8.7 mg/dL (8.5-10.1) Total Bilirubin 0.7 mg/dL (0.2-1.0) 0.6 mg/dL (0.2-1.0) Aspartate Amino Transf (AST/SGOT) 24 U/L (15-37) 18 U/L (15-37) Alanine Aminotransferase (ALT/SGPT) 32 U/L (14-59) 27 U/L (14-59) Alkaline Phosphatase 58 U/L (46-116) 53 U/L (46-116) Total Protein 7.9 g/dL (6.4-8.2) 6.7 g/dL (6.4-8.2) Albumin 4.3 g/dL (3.4-5.0) 3.6 g/dL (3.4-5.0) Albumin/Globulin Ratio 1.2 (1.0-1.7) 1.2 (1.0-1.7) Urine Opiates Screen Neg (NEG) Urine Methadone Screen Neg (NEG) Urine Barbiturates Neg (NEG) Urine Phencyclidine Screen Neg (NEG) Urine Amphetamine/Methamphetamine Neg (NEG) Urine Benzodiazepines Screen Neg (NEG) Urine Cocaine Screen Neg (NEG) Urine Cannabinoids Screen Pos (NEG) Urine Ethyl Alcohol Neg (NEG) Laboratory Tests Test 01/18/19 20:40 01/18/19 21:30 01/19/19 03:40 White Blood Count 5.7 x10^3/uL (4.0-11.0) 6.3 x10^3/uL (4.0-11.0) Red Blood Count 4.48 x10^6/uL (3.50-5.40) 3.91 x10^6/uL (3.50-5.40) Hemoglobin 14.3 g/dL (12.0-15.5) 12.4 g/dL (12.0-15.5) Hematocrit 42.6 % (36.0-47.0) 37.4 % (36.0-47.0) Mean Corpuscular Volume 95 fL (79-100) 96 fL (79-100) Mean Corpuscular Hemoglobin 32 pg (25-35) 32 pg (25-35) Mean Corpuscular Hemoglobin Concent 34 g/dL (31-37) 33 g/dL (31-37) Red Cell Distribution Width 14.8 % (11.5-14.5) 14.6 % (11.5-14.5) Platelet Count 294 x10^3/uL (140-400) 255 x10^3/uL (140-400) Neutrophils (%) (Auto) 73 % (31-73) 71 % (31-73) Lymphocytes (%) (Auto) 19 % (24-48) 19 % (24-48) Monocytes (%) (Auto) 8 % (0-9) 10 % (0-9) Eosinophils (%) (Auto) 0 % (0-3) 0 % (0-3) Basophils (%) (Auto) 0 % (0-3) 0 % (0-3) Neutrophils # (Auto) 4.2 x10^3uL (1.8-7.7) 4.5 x10^3uL (1.8-7.7) Lymphocytes # (Auto) 1.1 x10^3/uL (1.0-4.8) 1.2 x10^3/uL (1.0-4.8) Monocytes # (Auto) 0.5 x10^3/uL (0.0-1.1) 0.6 x10^3/uL (0.0-1.1) Eosinophils # (Auto) 0.0 x10^3/uL (0.0-0.7) 0.0 x10^3/uL (0.0-0.7) Basophils # (Auto) 0.0 x10^3/uL (0.0-0.2) 0.0 x10^3/uL (0.0-0.2) Sodium Level 138 mmol/L (136-145) 139 mmol/L (136-145) Potassium Level 3.5 mmol/L (3.5-5.1) 3.5 mmol/L (3.5-5.1) Chloride Level 100 mmol/L (98-107) 102 mmol/L (98-107) Carbon Dioxide Level 26 mmol/L (21-32) 24 mmol/L (21-32) Anion Gap 12 (6-14) 13 (6-14) Blood Urea Nitrogen 12 mg/dL (7-20) 12 mg/dL (7-20) Creatinine 0.7 mg/dL (0.6-1.0) 0.8 mg/dL (0.6-1.0) Estimated GFR (Cockcroft-Gault) 118.9 101.9 BUN/Creatinine Ratio 17 (6-20) 15 (6-20) Glucose Level 114 mg/dL (70-99) 105 mg/dL (70-99) Calcium Level 9.5 mg/dL (8.5-10.1) 8.7 mg/dL (8.5-10.1) Total Bilirubin 0.7 mg/dL (0.2-1.0) 0.6 mg/dL (0.2-1.0) Aspartate Amino Transf (AST/SGOT) 24 U/L (15-37) 18 U/L (15-37) Alanine Aminotransferase (ALT/SGPT) 32 U/L (14-59) 27 U/L (14-59) Alkaline Phosphatase 58 U/L (46-116) 53 U/L (46-116) Total Protein 7.9 g/dL (6.4-8.2) 6.7 g/dL (6.4-8.2) Albumin 4.3 g/dL (3.4-5.0) 3.6 g/dL (3.4-5.0) Albumin/Globulin Ratio 1.2 (1.0-1.7) 1.2 (1.0-1.7) Urine Opiates Screen Neg (NEG) Urine Methadone Screen Neg (NEG) Urine Barbiturates Neg (NEG) Urine Phencyclidine Screen Neg (NEG) Urine Amphetamine/Methamphetamine Neg (NEG) Urine Benzodiazepines Screen Neg (NEG) Urine Cocaine Screen Neg (NEG) Urine Cannabinoids Screen Pos (NEG) Urine Ethyl Alcohol Neg (NEG) VTE Prophylaxis Ordered VTE Prophylaxis Devices: Yes VTE Pharmacological Prophylaxi: Yes Assessment/Plan Assessment/Plan Acute emesis with normal elytes Cyclic vomiting syndrome Marijuana use/addictions Plan: ADA T IV fluids 1 Other supportive meds-she claims relief with Phenergan and another pill Home tomorrow if feels better case management has requested to change to inpatient status, though likely will be denied. SEBLE BAEZA MD Jan 19, 2019 11:07
[2019-01-19] MEDS ORDERED: IV NORMAL SALINE 1000ML BAG 1,000 ML IV ONE (11:30)
[2019-01-19 15:00] VITALS: BP 162/85
[2019-01-19] MEDS ORDERED: cloNIDine HCL 0.1 MG TABLET PO ONE (18:45)
[2019-01-19 19:00] VITALS: BP 140/87
[2019-01-19] MEDS ORDERED: fentaNYL PF VIAL 100 MCG/2 ML VIAL IV PRN (21:30)
[2019-01-19] MEDS ORDERED: KETOROLAC 15 MG/ML VIAL. IV PRN (21:30)
[2019-01-19] MEDS: IV NORMAL SALINE 1000ML BAG 1,000 ML IV SCH (22:12)
[2019-01-19 23:00] VITALS: BP 123/62
[2019-01-20 03:00] VITALS: BP 112/73
[2019-01-20 07:00] VITALS: BP 99/42
[2019-01-20] MEDS ORDERED: DICY20TA3 PO (08:30)
[2019-01-20] MEDS ORDERED: OXYC1TAB7 PO (08:30)
[2019-01-20] MEDS: IV NORMAL SALINE 1000ML BAG 1,000 ML IV SCH (08:59)
[2019-01-20] MEDS: DOCUSATE SODIUM 100 MG CAPSULE. PO SCH (08:59)
[2019-01-20] MEDS ORDERED: PROC25SU21 RC (10:30)
--- NOTE | 2019-01-20 10:32 | PDOC3 ---
Discharge Summary Visit Information Date of Admission: Jan 19, 2019 Date of Discharge: Jan 20, 2019 Admitting Diagnosis Comment: Acute emesis with normal elytes Cyclic vomiting syndrome Marijuana use/addictions Final Diagnosis Problems Medical Problems: (1) Cannabinoid hyperemesis syndrome Status: Acute (2) Intractable nausea and vomiting Status: Acute Brief Hospital Course Allergies Allergies Coded Allergies Type Severity Reaction Last Updated Verified Latex, Natural Rubber Allergy Intermediate 05/13/17 Yes morphine Allergy Intermediate 05/13/17 Yes Vital Signs Vital Signs Date Time Temp Pulse Resp B/P (MAP) Pulse Ox O2 Delivery O2 Flow Rate FiO2 01/20/19 08:00 Room Air 01/20/19 07:00 98.4 63 14 99/42 (61) 95 98.4 Lab Results Laboratory Tests Test 01/18/19 20:40 01/18/19 21:30 01/19/19 03:40 White Blood Count 5.7 x10^3/uL (4.0-11.0) 6.3 x10^3/uL (4.0-11.0) Red Blood Count 4.48 x10^6/uL (3.50-5.40) 3.91 x10^6/uL (3.50-5.40) Hemoglobin 14.3 g/dL (12.0-15.5) 12.4 g/dL (12.0-15.5) Hematocrit 42.6 % (36.0-47.0) 37.4 % (36.0-47.0) Mean Corpuscular Volume 95 fL (79-100) 96 fL (79-100) Mean Corpuscular Hemoglobin 32 pg (25-35) 32 pg (25-35) Mean Corpuscular Hemoglobin Concent 34 g/dL (31-37) 33 g/dL (31-37) Red Cell Distribution Width 14.8 % (11.5-14.5) 14.6 % (11.5-14.5) Platelet Count 294 x10^3/uL (140-400) 255 x10^3/uL (140-400) Neutrophils (%) (Auto) 73 % (31-73) 71 % (31-73) Lymphocytes (%) (Auto) 19 % (24-48) 19 % (24-48) Monocytes (%) (Auto) 8 % (0-9) 10 % (0-9) Eosinophils (%) (Auto) 0 % (0-3) 0 % (0-3) Basophils (%) (Auto) 0 % (0-3) 0 % (0-3) Neutrophils # (Auto) 4.2 x10^3uL (1.8-7.7) 4.5 x10^3uL (1.8-7.7) Lymphocytes # (Auto) 1.1 x10^3/uL (1.0-4.8) 1.2 x10^3/uL (1.0-4.8) Monocytes # (Auto) 0.5 x10^3/uL (0.0-1.1) 0.6 x10^3/uL (0.0-1.1) Eosinophils # (Auto) 0.0 x10^3/uL (0.0-0.7) 0.0 x10^3/uL (0.0-0.7) Basophils # (Auto) 0.0 x10^3/uL (0.0-0.2) 0.0 x10^3/uL (0.0-0.2) Sodium Level 138 mmol/L (136-145) 139 mmol/L (136-145) Potassium Level 3.5 mmol/L (3.5-5.1) 3.5 mmol/L (3.5-5.1) Chloride Level 100 mmol/L (98-107) 102 mmol/L (98-107) Carbon Dioxide Level 26 mmol/L (21-32) 24 mmol/L (21-32) Anion Gap 12 (6-14) 13 (6-14) Blood Urea Nitrogen 12 mg/dL (7-20) 12 mg/dL (7-20) Creatinine 0.7 mg/dL (0.6-1.0) 0.8 mg/dL (0.6-1.0) Estimated GFR (Cockcroft-Gault) 118.9 101.9 BUN/Creatinine Ratio 17 (6-20) 15 (6-20) Glucose Level 114 mg/dL (70-99) 105 mg/dL (70-99) Calcium Level 9.5 mg/dL (8.5-10.1) 8.7 mg/dL (8.5-10.1) Total Bilirubin 0.7 mg/dL (0.2-1.0) 0.6 mg/dL (0.2-1.0) Aspartate Amino Transf (AST/SGOT) 24 U/L (15-37) 18 U/L (15-37) Alanine Aminotransferase (ALT/SGPT) 32 U/L (14-59) 27 U/L (14-59) Alkaline Phosphatase 58 U/L (46-116) 53 U/L (46-116) Total Protein 7.9 g/dL (6.4-8.2) 6.7 g/dL (6.4-8.2) Albumin 4.3 g/dL (3.4-5.0) 3.6 g/dL (3.4-5.0) Albumin/Globulin Ratio 1.2 (1.0-1.7) 1.2 (1.0-1.7) Urine Opiates Screen Neg (NEG) Urine Methadone Screen Neg (NEG) Urine Barbiturates Neg (NEG) Urine Phencyclidine Screen Neg (NEG) Urine Amphetamine/Methamphetamine Neg (NEG) Urine Benzodiazepines Screen Neg (NEG) Urine Cocaine Screen Neg (NEG) Urine Cannabinoids Screen Pos (NEG) Urine Ethyl Alcohol Neg (NEG) Brief Hospital Course Ms. Masters is a 28 old [sex] who presented with [ ] 28-year-old female with history of cyclic vomiting per chart, marijuana use also? Claims to me 6 episodes of vomiting yesterday. Much better now but still did not eat breakfast. Bucket at bedside she claims she cleaned the vomitus. Labs are normal, no electric abnormalities. CT done on November 2018 was normal. She did have a low EF of her gallbladder and that has been taken out. She wishes for some IV fluids course: Stayed for 2 midnights. Only supportive meds, no elyte abN. Likely will be denied inpatient stay. Better after supportive meds. Discharge disposition to home with 3 Rx namely pain medicine, Compazine, Reglan or Phenergan. She already has Zofran at home Discharge Information Condition at Discharge: Improved, Stable Follow Up: Weeks (pcp if sxs no better or as scheduled) Disposition/Orders: D/C to Home Scheduled Dicyclomine Hcl (Dicyclomine Hcl) 20 Mg Tablet, 1 TAB PO TID for pain MDD 1, # 30 Ref 1 Prescribed by: SEBLE BAEZA on 01/20/19 0830 Docusate Sodium (Colace) 100 Mg Capsule, 100 MG PO BID, #60 Ref 0 Prescribed by: Sherly Cope on 05/25/16 0914 Last Action: Continued on 01/19/19911 by SEBLE BAEZA Metoclopramide Hcl (Reglan) 10 Mg Tablet, 10 MG PO QIDACHS, #20 Ref 0 Prescribed by: RAHEEM ALFREDO D.O. on 11/29/18 1613 Last Action: HELD on 01/19/19911 by SEBLE BAEZA Ondansetron (Zofran Odt) 4 Mg Tab.rapdis, 1 TAB SL Q8HRS, #15 Prescribed by: NERISSA AMEZQUITA on 05/08/16 1416 Last Action: HELD on 01/19/19911 by SEBLE BAEZA Ondansetron (Zofran Odt) 4 Mg Tab.rapdis, 1 TAB SL Q8HRS, #10 Prescribed by: HARMAN CORCORAN on 11/26/16 1424 Last Action: HELD on 01/19/19911 by SEBLE BAEZA Ondansetron (Zofran Odt) 4 Mg Tab.rapdis, 1 TAB SL Q8HRS, #15 Prescribed by: PAUL NELSON D.O. on 05/13/17 0200 Last Action: HELD on 01/19/19911 by SEBLE BAEZA Ondansetron (Zofran Odt) 4 Mg Tab.rapdis, 1 TAB SL Q8HRS, #15 Prescribed by: Lizzie Pena APRN on 12/01/17 1636 Last Action: HELD on 01/19/19911 by SEBLE BAEZA Ondansetron (Zofran Odt) 4 Mg Tab.rapdis, 1 TAB SL Q8HRS, #15 Prescribed by: Lizzie Pena APRN on 07/07/18 1511 Last Action: HELD on 01/19/19911 by SEBLE BAEZA Ondansetron (Ondansetron Odt) 4 Mg Tab.rapdis, 1 TAB PO PRN Q6-8HRS, #16 Prescribed by: Lizzie Pena APRN on 4/07/28 1947 Last Action: Reviewed on 01/19/19911 by SEBLE BAEZA Prochlorperazine Maleate (Compazine) 25 Mg Supp.rect, 25 MG RC QID for emesis for 7 Days, #28 Prescribed by: SEBLE BAEZA on 01/20/19 1030 Promethazine Hcl (Promethazine Hcl) 25 Mg Tablet, 1 TAB PO PRN Q6HRS, #20 Prescribed by: NERISSA AMEZQUITA on 05/08/16 1416 Last Action: HELD on 01/19/19911 by SEBLE BAEZA Promethazine Hcl (Promethazine Hcl) 12.5 Mg Tablet, 1 TAB PO Q6-8HRS, #10 Ref 1 Prescribed by: REJI KHAN D.O. on 11/27/161715 Last Action: Continued on 01/19/19911 by SEBLE BAEZA Tramadol Hcl (Tramadol Hcl) 50 Mg Tablet, 1 TAB PO PRN Q6HRS, #30 Prescribed by: Lizzie Pena APRN on 12/01/17 1636 Last Action: Continued on 01/19/19911 by SEBLE BAEZA Scheduled PRN Dicyclomine Hcl (Dicyclomine Hcl) 10 Mg Capsule, 1 CAP PO TID PRN for abdominal cramping/pain, #15 Ref 11 Prescribed by: RAHEEM ALFREDO D.O. on 07/18/182053 Last Action: Continued on 01/19/19911 by SEBLE BAEZA Hydrocodone Bit/Acetaminophen (Hydrocodone-Apap 5-325 ) 1 Each Tablet, 1 TAB PO PRN Q6HRS PRN for PAIN, #15 Be careful as this medication may cause you to be drowsy or tired. Do not drive on this medication. Prescribed by: SUSAN SHERMAN on 10/25/16 182 Last Action: HELD on 01/19/19911 by SEBLE BAEZA Hydrocodone/Apap 5-325 ([place] 5-325 Tablet) 1 Each Tablet, 1 TAB PO PRN Q6HRS PRN for PAIN, #8 Ref 0 Prescribed by: REJI KHAN D.O. on 11/27/161715 Last Action: Continued on 01/19/19911 by SEBLE BAEZA Metoclopramide Hcl (Reglan) 10 Mg Tablet, 10 MG PO QIDACHS PRN for NAUSEA/ VOMITING, #20 Ref 0 Prescribed by: RAHEEM ALFREDO D.O. on 07/18/182053 Last Action: Continued on 01/19/19911 by SEBLE BAEZA Ondansetron (Zofran Odt) 4 Mg Tab.rapdis, 1 TAB SL PRN Q8HRS PRN for NAUSEA, #6 Prescribed by: SUSAN SHERMAN on 10/25/166 Last Action: HELD on 01/19/19911 by SEBLE BAEZA Oxycodone Hcl/Acetaminophen (Oxycodone-Acetaminophen 5-325) 1 Each Tablet, 1 TAB PO PRN Q4HRS PRN for PAIN MDD 1, #30 Ref 0 Prescribed by: SEBLE BAEZA on 01/20/19 0830 Miscellaneous Medications [bc implant] , (Reported) Entered as Reported by: MICHAEL MESA on 11/26/16 1139 Last Action: HELD on 01/19/19911 by SEBLE HILL MD Jan 20, 2019 10:32
[2019-01-20 11:00] VITALS: BP 122/79
[2019-01-20] MEDS ORDERED: PANTOPRAZOLE 40 MG TABLET.DR. PO SCH (11:30)
--- NOTE | 2019-01-20 16:35 | NUR ---
Discharge Note: JUAN CARLOS KIMBLE Discharge instructions and discharge home medications reviewed with Patient and a copy given. All questions have been answered and understanding verbalized. The following instructions and handouts were given: Discharge Instructions and Prescriptions Discontinued lines and drains: Peripheral IV, Left AC removed, catheter intact. Patient discharged to Home with Self-Care via Private Vehicle
== END 2019-01-20 16:00 | disposition home or self-care (01) | DRG 103 ==
LOC: ER 19:06 → 5 NORTH 22:33 → OBSVTOIN 01-19 11:03
PROVIDERS: ADMIT Family Medicine; ATTEND Family Medicine
DX: G43.A0 Cyclical vomiting, in migraine, not intractable (principal); F12.988 Cannabis use, unspecified with other cannabis-induced disorder; K31.89 Other diseases of stomach and duodenum; J45.909 Unspecified asthma, uncomplicated; K58.9 Irritable bowel syndrome, unspecified; F12.90 Cannabis use, unspecified, uncomplicated; G89.29 Other chronic pain; Z88.5 Allergy status to narcotic agent; Z91.040 Latex allergy status; Y92.89 Other specified places as the place of occurrence of the external cause
CPT/HCPCS: 36415; 80053; 80307; 85025; 96374; 96375; G0378; G0379; J0780; J1200; J1885; J2405; J2765; J7030; 99285-25